=== PATIENT | male | born 1955 | race Caucasian/White ===

== ENCOUNTER → 2020-07-04 13:50 | Outpatient (CLI) | payer OTHER, SELFPAY ==
[2020-07-04 15:13] LABS: COVID19 -Nasal RAPID Negative (Negative)
== END ==
PROVIDERS: Visit Provider Physician Assistant
DX: Z11.59 Encounter for screening for other viral diseases (principal)
CPT/HCPCS: 87635

== ENCOUNTER 2020-07-07 08:57 | Inpatient (IN) | payer SELFPAY ==
[2020-07-02 12:49] VITALS: BMI 21.5
[2020-07-07] VITALS (18 sets, daily range): BP systolic 84–166; BP diastolic 41–93; PULSE 64–115; RESP 12–18; TEMP 35.9–36.9; O2SAT 96–100; BMI 21.5
--- NOTE | 2020-07-07 | DI.RAD.S_ITS ---
PROCEDURE: XR THORACIC SPINE 2V INDICATIONS: T8-9 XLIF TECHNIQUE: Fluoroscopic views x2 of the thoracic spine were acquired. COMPARISON: [facility], CR, XR CHEST 1V, 07/07/2020, 18:30. FINDINGS: Thoracic spine bilateral pedicle screws with intervertebral body spacer. Pedicle screws are in the expected position. IMPRESSION: Pedicle screws are in the expected position within the vertebral body. Dictated by: Nacho Miller M.D. on 07/07/2020 at 19:25 Approved by: Nacho Miller M.D. on 07/07/2020 at 19:26
[2020-07-07] MEDS: LACTATED RINGERS 1,000 ML 42 ML IV ×3 (09:55→16:25)
--- NOTE | 2020-07-07 10:32 | PM.PREOP ---
Pre-operative Note COVID-19 COVID-19 status: Negative Result date/Date tested (Pos, Neg/Pending): 07/04/20 Interval Note History & Physical reviewed/Exam performed by Physician: Yes Changes to H&P: Yes H&P completed within 30 days and has changed as indicated here:: He has seen his seismometer operator Dr Price. He then later had a stress test with some reversible ischemia. We discussed the new test with Dr Price yesterday who states that he is at intermediate risk but is medically maximized at this point.
--- NOTE | 2020-07-07 11:26 | SUR.PREOP ---
Dr Melgar to room to place an arterial line to patient for surgery. Placed patient on oxygen at 2 liters nasal cannula. Continuous cardiac monitoring in place. VSS.
[2020-07-07] MEDS: MIDAZOLAM 2 MG/2 ML VIAL IV (11:29)
[2020-07-07] MEDS: CEFAZOLIN 2 GM/100 ML FROZ.PIGGY IV ×3 (11:49→23:25)
--- NOTE | 2020-07-07 11:49 | SUR.PREOP ---
Patient tolerated placement of left radial arterial line without difficulty. VSS. To OR via stretcher with OR nurse.
--- NOTE | 2020-07-07 12:38 | PM.PROC.1 ---
Procedures Date/Time Date of procedure: 07/07/20 Time of procedure: 11:30 Arterial Line Time out performed: Yes Size (Gauge): 20 Technique used: guide wire technique Post-Procedure: dry sterile dressing placed Patient tolerated procedure: Well and No complications Site: left and radial
[2020-07-07] MEDS: ACETAMINOPHEN IV 1,000 MG/100 ML VIAL 400 MG IV (13:00)
[2020-07-07] MEDS: SODIUM CHLORIDE 0.9% 1,000 ML, GENTAMICIN 80 MG IRR (13:08)
[2020-07-07] MEDS: THROMBIN (RECOMBINANT) 5,000 UNIT VIAL 5000 UNIT TOP (13:10)
[2020-07-07] MEDS: VANCOMYCIN 1,000 MG VIAL 1000 MG TOP (13:11)
[2020-07-07] MEDS: BUPIVACAINE 0.5% (PF) 4 ML, MORPHINE-PF 4 MG, BUTORPHANOL 1 MG, fentaNYL 100 MCG INJ (13:11)
--- NOTE | 2020-07-07 13:21 | SUR.OPER ---
Lateral on padded OR bed, head on pillow, gel axillary roll in place, bottom leg bent with gel pad under knee to foot, upper leg straight and supported with pillows. Upper arm supported by pillows and secured over bottom arm to padded arm board. Safety belt at hip, tape over blanket lower legs.
--- NOTE | 2020-07-07 13:22 | SUR.OPER ---
Prone on spine table, head in foam head support, padded chest and pelvic supports, gel pad at knees, lower legs supported by pillows; nipples, genitalia and toes free of pressure, arms secured on foam padded arm boards at <90 degrees abduction. Tape over blanket at thigh secured to table.
--- NOTE | 2020-07-07 14:07 | SUR.OPER ---
Patient glucose 154 at 14:00; fingerstick by Dr. Melgar.
[2020-07-07] MEDS: LACTATED RINGERS 1,000 ML 100 ML IV (14:55)
[2020-07-07 15:29] LABS: Hemoglobin 10.8 g/dL (13.5-17.5)
--- NOTE | 2020-07-07 18:02 | PM.OP.1 ---
Operative Date/Time/Diagnoses Date of procedure: 07/07/20 Time of procedure: 18:02 Pre-op diagnosis: Thoracic disc herniation with myelopathy Lumbar stenosis with radiculopathy Post-op diagnosis: same Procedure & Clinicians Procedure: T8-9 anterior thoracic diskectomy T8-9 anterior thoracic fusion with cage T8-9 posterior fusion with screws Iliac crest bone graft aspirate L1-2 laminectomy L2-3 laminectomy Use of microscope Placement of epidural catheter Same procedure as scheduled: Yes Indications: [age] year old male with intractable pain from stenosis and thoracic disc herniation. They had failed conservative management and requested operative intervention. Risks and benefits of surgery were discussed and appropriate consents were obtained. Surgeon: Teodoro Webb Associate Professor Computer Science: Gloria Plascencia Anesthesia Type: General Operative Notes Findings: None Closure Type: primary Specimen(s): none sent Prosthetic devices, grafts, tissues, transplants, or devices: NuVasive Thoracic XLIF cage and MAS Reline screws Applied: catheter Estimated Blood Loss (mL): 800 Procedure in detail: Patient was brought to the operating room and intubated on the table. Time-out was performed. They were then rolled over to the lateral decubitus position with the [id number]. The table was bent and they were taped down in the correct position. X-rays were taken to confirm a true AP and lateral as well as to count up to our T8-9 level. Preoperative antibiotics were given. The right flank was prepped and draped in standard sterile fashion. Using fluoroscopy, we again counted up to our T8-9 level and this was confirmed with the large anterior osteophytes. We made a 3 cm oblique incision just above the rib that was below the disc level. Bovie used to come down to and split the muscles. We then bluntly split through the pleura into the chest cavity. A finger was used to bluntly dissect and opened this up and then gently sweep the long anteriorly. Using fluoroscopy, a dilator was slid down to the finger along the lateral aspect of the rib until it went forward to the vertebral body. This was positioned over the T8-9 disc with fluoroscopy. We then used sequentially larger dilators and then placed our retractor over this. We switched out the fan retractor for the anterior blade to keep the lung anterior and safely out of the way. We then advanced the retractor and opened it further and checked under fluoro for positioning, confirming the anterior blades were over the level of the canal. The blade was used to cut through the pleura on the anterior aspect and this was dissected away to expose over the head of the rib. An annulotomy was performed. We then performed a complete diskectomy with ring curette, pituitary, box osteotome. A Hopkins was advanced across the disc space under fluoroscopy to release the lateral annulus on the opposite side. An osteotome was used to remove part of the head of the rib and also to make angled cuts along the superior posterior endplate of T9 in the inferior posterior endplate of T8. There were very large osteophytes along T9 and we had to remove part of the pedicle to be able to get to this section. We continued working with the osteotome till we were well past the midline. We used curettes and a Fulton to gradually sweep all of the tissue anteriorly away from the PLL and dura. There was a large disc component corresponding with the MRI as well as large posterior osteophytes and some calcified disc. This took the majority of the time to slowly work posteriorly around this and remove little bits at a time with a curette. As we were cutting through the vertebral body, the bone marrow continue to ooze and bleed which accounted for almost all the bleeding. Some of this was kept under control with bone wax but somewhat just kept oozing. At the end, we had finally decompress the disc herniation and released the PLL as well as expose the dura and everything appeared well released. The wound was copiously irrigated. We then trialed our cage. We needed to use the box osteotome to make a further anterior cut so that it would be stable as we lost some of our posterior aspect of the bone. An XLIF cage was packed with Osteocel bone graft and impacted into the T8-9 disc space with fluoroscopy for the anterior fusion at this level. The bone marrow stopped oozing once the cage was packed in. The wound was irrigated. The retractor was closed down and carefully removed under direct visualization. The lung filled back easily. A small 1 cm incision was made to ribs down and Bovie used to split through the muscle just above the rib. A finger was placed through the thoracotomy incision to this level and we Bovie down on top of that to protect the lung. Small chest tube was passed through the smaller incision and advanced cephalad. The muscle fascia was closed, superficial tissue was closed. The skin was closed. A draw string purse stitch was placed around the chest tube and it was tied in place. Sterile dressing was placed. The chest tube was hooked up to the pneumovac at 20 cm of water. The patient was then rolled over on the well-padded prone position on the Bebo table. Using fluoroscopy for localization, a 3 cm incision was made on the right side over T8-9. We used Bovie to split through the fascia and then percutaneously placed Jamshidi needles down the right pedicles of T8 and T9 using fluoroscopy and neural monitoring. We stated as inferior as possible in the T9 pedicle to try to keep it in the remaining bone. These were switched to guidewires and then tapped and then percutaneous screws placed over this. We then measured and placed a pati locked down. We then went to the left-hand side and made a 3 cm incision. Bovie used to split the fascia and we dissected all the way down to the bone. The lamina of T8-T9 as well as the facet were exposed. We used a bur to decorticate these. We then percutaneously placed Jamshidi needles down the left pedicles of T8-T9 using fluoroscopy and monitoring. We tapped and then placed our screws. The pati was placed and locked down. The wounds were copiously irrigated. A small stab incision was made over the PSIS and a Jamshidi needle was placed into the iliac crest and several mL of bone marrow was aspirated. This was mixed with our locally harvested bone graft as well as the remaining Osteocel and placed posteriorly along the lamina facet for fusion at T8-9. The fascia was closed in both incisions. We then used fluoroscopy to make a 3 cm right-sided incision at L3-4. We used Bovie to split the fascia. We bluntly dissected through the muscle down to the lamina with dilators and confirmed positioning with fluoroscopy. We locked down our retractor and cleared off the soft tissue and placed a marker and confirmed with fluoroscopy that we were at L3-4. We brought in the microscope. A right-sided laminectomy was performed at L3-4 with bur and Kerrisons. We carefully depressed the dura and reach across to decompress the opposite side of the canal. We cleared out the foramen. At the end we could reach cephalad and caudally and everything was open.. The wound was irrigated and the fascia closed. We then used fluoroscopy to make another 3 cm right-sided incision over L1-2. We used Bovie to split the fascia. We used the dilators to bluntly split through the muscle and confirmed position with fluoroscopy then locked our retractor down. We cleared off the soft tissue and placed a marker and confirmed with fluoroscopy that we were at L1-2. Again a bur and Kerrisons were used to perform a right-sided laminectomy. We carefully depressed the dura and reach to the opposite side to decompress the canal. In the end we could sweep the ball probe cephalad caudally and out the foramen and everything was open. The wound was irrigated An epidural catheter was primed with 4mL of 0.5% bupivacaine, 100 mcg fentanyl, 4 mg Duramorph, 1 mg Stadol. The dura was depressed under the cephalad lamina with a ball probe and the epidural catheter was gently advanced 6 cm cephalad. The fascia was then closed. The epidural was then injected without resistance. The catheter was pulled and we closed more over the fascia. Vancomycin powder was placed in the wounds. The superficial and skin were closed. Sterile dressings were placed. The patient was then rolled over, extubated, brought to the recovery room with no complications. Complications: none Post-operative Condition: stable Disposition: ICU Plan for aftercare: Chest tube overnight and then put on water seal in the morning. If the new chest x-ray looks good then the chest tube can come out in the morning. Mobilize with PT.
--- NOTE | 2020-07-07 18:09 | DI.RAD.S_ITS ---
PROCEDURE: XR CHEST 1V INDICATIONS: s/p thoracotomy TECHNIQUE: One view of the chest was acquired. COMPARISON: None. FINDINGS: Surgical changes and devices: Right-sided chest tube with the tip projecting near the apex.. Lungs and pleura: Lungs appear clear. Suspect trace right pneumothorax. No pleural effusion. Mediastinum: Mediastinal contours appear normal. Heart size is normal. Bones and chest wall: No suspicious bony lesions. Thoracic spine fixation hardware. Overlying soft tissues appear unremarkable. IMPRESSION: Suspect trace right pneumothorax. Right-sided chest tube with the tip near the apex. Thoracic spine fixation hardware. Dictated by: Nacho Miller M.D. on 07/07/2020 at 18:50 Approved by: Nacho Miller M.D. on 07/07/2020 at 18:53
[2020-07-07 19:00] LABS: Hematocrit 30.6 % (41-53); Hemoglobin 10.6 g/dL (13.5-17.5)
[2020-07-07] MEDS: OXYCODONE IR 5 MG TABLET PO ×2 (19:08→19:31)
[2020-07-07] MEDS: hydrOXYzine 50 MG/ML INJ 25 MG IM (19:08)
[2020-07-07] MEDS: HYDROMORPHONE 2 MG INJ IV ×2 (19:15→19:19)
--- NOTE | 2020-07-07 19:21 | SUR.PHASEI ---
During chest x-ray while patient was sat up, patient's bp dropped on art line. Placed in trendelenburg immediately where blood pressure came back up to stable. Dr. Webb made aware of episode and gave new orders for H&H.
--- NOTE | 2020-07-07 20:17 | SUR.PHASEI ---
Patient taken up to ICU in stable condition with all belongings. Left in stable condition with receiving RN at bedside
[2020-07-07] MEDS: HYDROMORPHONE 0.5 MG INJ IV (21:43)
[2020-07-07] MEDS: LACTATED RINGERS 1,000 ML 125 ML IV (21:48)
[2020-07-08] VITALS (37 sets, daily range): BP systolic 95–123; BP diastolic 50–62; PULSE 0–991; RESP 5–37; TEMP 36.4–37.3; O2SAT 91–100
[2020-07-08] MEDS: HYDROCODONE/ACET 5/325 TABLET 2 TAB PO ×4 (00:42→19:05)
[2020-07-08 04:52] LABS: Hematocrit 26.5 % (41-53); Hemoglobin 9.2 g/dL (13.5-17.5)
[2020-07-08] MEDS: LACTATED RINGERS 1,000 ML 125 ML IV ×2 (04:52→22:36)
[2020-07-08] MEDS: HYDROMORPHONE 0.5 MG INJ IV ×2 (04:52→07:44)
--- NOTE | 2020-07-08 06:00 | DI.RAD.S_ITS ---
PROCEDURE: XR CHEST 1V INDICATIONS: post thoracotomy TECHNIQUE: One view of the chest was acquired. COMPARISON: [facility], CR, XR CHEST 1V, 07/07/2020, 18:30. FINDINGS: Surgical changes and devices: Right-sided chest tube with the tip near the apex. Lungs and pleura: Trace right pneumothorax. Lungs appear clear. No pleural effusions. Mediastinum: Mediastinal contours appear normal. Heart size is normal. Bones and chest wall: No suspicious bony lesions. The thoracic spine fixation hardware. Overlying soft tissues appear unremarkable. IMPRESSION: Trace right pneumothorax, unchanged. Right-sided chest tube with the tip near the apex. Dictated by: Nacho Miller M.D. on 07/08/2020 at 8:04 Approved by: Nacho Miller M.D. on 07/08/2020 at 8:06
--- NOTE | 2020-07-08 07:36 | PM.PNPO.1 ---
Subjective Subjective Date Patient Seen: 07/08/20 Time Patient Seen: 07:37 Interval history: Pain is 8/10 mostly in the back. Legs feel good although still weakness on the left leg. The abdominal pain is not sharp but there is still a tightness feeling. Exam Vital Signs (past 8 hours): - 07/08/20 00:00 07/08/20 01:00 07/08/20 02:00 Temperature 97.5 F L Pulse Rate 70 84 84 Respiratory Rate 16 18 12 Blood Pressure 101/50 L 101/50 L 107/52 L Pulse Oximetry 97 100 100 07/08/20 03:00 07/08/20 04:00 07/08/20 05:00 Temperature 97.8 F Pulse Rate 76 76 70 Respiratory Rate 20 16 18 Blood Pressure 120/53 L 109/50 L 95/53 L Pulse Oximetry 100 99 99 07/08/20 06:00 Temperature Pulse Rate 72 Respiratory Rate 20 Blood Pressure 105/54 L Pulse Oximetry 97 Oxygen Delivery Method Nasal Cannula Oxygen Flow Rate 0 Const Orientation: alert and oriented x3 Back/Spine/Pelvis Other: Moderate drainage chest tube site. Mild drainage posteriorly. 5/5 motor both lower extremities except for 4/5 bilateral hip flexors and 4/5 left quadriceps, improved since surgery. Objective Labs Result Diagrams: 07/08/20 04:47 Labs: Laboratory Results - last 24 hr 07/07/20 07/07/20 07/07/20 15:23 15:23 18:57 Hgb 10.8 L 10.6 L Hct 32.0 L 30.6 L Nasal Screen MRSA (PCR) Blood Type B Positive Antibody Screen Negative 07/07/20 07/08/20 22:00 04:47 Hgb 9.2 L Hct 26.5 L Nasal Screen MRSA (PCR) Negative for mrsa Blood Type Antibody Screen Assessment & Plan Post-op Postoperative Procedures: Procedures Operation Date: 07/07/20 11:15 Actual Procedures Side Surgeon p T89 anterior transpleural (through chest cavity) discectomy & anterior/ posterior instrumentated fusion w/ bone graft. L1-2, L3-4 laminectomies Teodoro Webb MD He has acute blood loss anemia with an H&H now at 9 and 26. Recheck the H&H again in the morning. He is somewhat dehydrated right now as his urine output is low and I will give him a normal saline bolus. His chest x-ray looks good this morning and I just removed his chest tube. We will check a repeat chest x-ray. Mobilize with physical therapy. Continue working with pain management.
--- NOTE | 2020-07-08 07:37 | DI.RAD.S_ITS ---
PROCEDURE: XR CHEST 1V INDICATIONS: s/p chest tube removal TECHNIQUE: One view of the chest was acquired. COMPARISON: [facility], , XR CHEST 1V, 07/08/2020, 6:02. FINDINGS: Surgical changes and devices: Interval removal of right chest tube Lungs and pleura: Interval increase in right pneumothorax, now [id number]. Patchy bibasilar atelectasis. Mediastinum: Mediastinal contours appear normal. Heart size is normal. Bones and chest wall: No suspicious bony lesions. Overlying soft tissues appear unremarkable. IMPRESSION: Status post removal of right chest tube with interval increase in right pneumothorax, now [id number]. Dictated by: Morgan Barber M.D. on 07/08/2020 at 8:58 Approved by: Morgan Barber M.D. on 07/08/2020 at 9:00
--- NOTE | 2020-07-08 07:39 | PC.NURSE ---
Broadcast Operations Manager Note-Patient rested fairly well, but did not sleep, medicated with PO Roosevelt and IV Dilaudid per prn orders. Chest patent to 20cm sx until 0400, then placed on water seal for CXR at 0600. MD removed chest tube this am, had total srous-sang output of 38ml. Artline in place overnight, positional, waveform becomes damped often, will be removed this am also per MD order. Total UOP in Martin 150ml for night, MD ordered fluid bolus, see Emar. Also see assessments, vitals, and I/Os.
[2020-07-08] MEDS: SODIUM CHLORIDE 0.45% 1,000 ML 1000 ML IV (07:45)
[2020-07-08] MEDS: CEFAZOLIN 2 GM/100 ML FROZ.PIGGY IV ×2 (07:52→17:17)
[2020-07-08] MEDS: DOCUSATE 100 MG CAPSULE PO ×2 (08:32→20:40)
[2020-07-08] MEDS: diazePAM 5 MG TABLET PO ×2 (08:32→16:17)
[2020-07-08] MEDS: GABAPENTIN 100 MG CAPSULE PO ×3 (08:33→20:40)
[2020-07-08] MEDS: HYDROMORPHONE 0.5 MG INJ 0.2 MG IV (08:35)
[2020-07-08] MEDS: HYDROMORPHONE 1 MG INJ IV ×7 (10:16→21:37)
--- NOTE | 2020-07-08 10:18 | PT-IP ANOTE ---
PT order received. Spoke to TONE [place]field who stated pt is not medically stable ready for PT. Pt had his chest tube removed earlier this morning but his pneumothorax has been worsening. Surgeon will decide this pm whether pt will need chest tube again or not depends on his progress. RN recommended deferring PT to tomorrow.
--- NOTE | 2020-07-08 10:44 | OT.IPNOTE ---
Per nursing pt not medically appropriate at this time for OT eval. Therefore check on pt tomorrow.
[2020-07-08] MEDS: CELECOXIB 200 MG CAPSULE PO ×2 (11:28→20:40)
[2020-07-08] MEDS: methocarbamoL 500 MG TABLET PO ×3 (11:29→20:40)
--- NOTE | 2020-07-08 11:49 | PC.NURSE ---
Addendum entered by Gin Lezama R.N. 07/08/20 15:32: Add-No hospitalist consult per Dr Webb, monitor until he returns for chest tube placement. Addendum entered by Gin Lezama R.N. 07/08/20 15:27: Dr Webb planning to reinsert chest tube at bedside ~1500. Supplies at bedside. Addendum entered by Gin Lezama R.N. 07/08/20 12:09: 1210-Pt remains with significant pain to R chest and back, unable to sit up at edge of bed. Following increased dosing of 1mg hourly hydromorphone. 90-92% on RA, placed back on 1L. Call into Dr Webb. CXR moved up to now, from 1500. Portable obtained at bedside. updated at bedside as well. Sero sang drainaage noted to chest tube dressing. Original Note: Am shift Dr Webb into see Pt, removed chest tube, occlusive dressing in place. Repeated chest xray, showing worsening pneumothorax. Call to Dr Webb, Repeat chest xray @ 1500 and increased IV dilaudid for break through pain. Encourage ambulation/work with PT, once pain is better controlled. IVF bolus ordered. Pts lungs remains dim, worse on R, SOB and pain worse with any movement. Pt has been unable to sit at the edge of bed yet this shift. Trialed at RA, Spo2 90% Rates pain 9/10 to Chest tube site. Serosang drainage noted. UOP picking up , curry patent.
--- NOTE | 2020-07-08 12:08 | DI.RAD.S_ITS ---
PROCEDURE: XR CHEST 1V INDICATIONS: Monitor pneumothorax TECHNIQUE: One view of the chest was acquired. COMPARISON: [facility], CR, XR CHEST 1V, 07/08/2020, 6:02. [facility], CR, XR CHEST 1V, 07/07/2020, 18:30. [facility], CR, XR CHEST 1V, 07/08/2020, 8:18. FINDINGS: Surgical changes and devices: No chest tube. Lungs and pleura: Moderate-sized right pneumothorax, increased. This measures approximately 3.9 cm, previously 3 cm at 8:18 this morning. No pneumothorax on the left. No pleural effusion. Mild airspace opacity at the right lung base likely atelectasis. Mediastinum: Mediastinal contours appear unchanged. No midline shift. Heart size is normal. Bones and chest wall: No suspicious bony lesions. Thoracic spine pedicle screws. Overlying soft tissues appear unremarkable. IMPRESSION: Moderate-sized right pneumothorax, increased. Comment: Findings were discussed with Dr. Teodoro Webb at the time of dictation. Dictated by: Nacho Miller M.D. on 07/08/2020 at 13:14 Approved by: Nacho Miller M.D. on 07/08/2020 at 13:20
[2020-07-08] MEDS: hydrOXYzine pamoate 25 MG CAPSULE PO ×2 (13:41→16:17)
[2020-07-08] MEDS: INSULIN ASPART 100 UNIT/ML INSULN PEN SUBCUT ×2 (13:41→16:32)
--- NOTE | 2020-07-08 13:48 | CM.DANOTE ---
Patient is a 64 year old male who was admitted on 07/07/20 for Thoracic Spinal Stenosis/Lumbar. Pt has PRIVATE PAY for no insurance and his PCP is not listed. EMR was reviewed. Per Ortho MD, pt tolerated procedure well and planned chest tube was removed early this morning. Per RN, pt has had some pain control issues since chest tube removed and low H&H. PT/OT ordered and pending. Per [facility], pt does not have insurance and does not qualify and therefore they worked with [facility] and the hospital on paying a down payment upfront which was received. SW met bedside with pt and spouse and explained role and pt clearly feeling pain and discomfort. Pt and spouse confirm they live in [place] and pt is active and independent at baseline and denies any hx of HH or SNF. Pt has not recently utilized outpt PT but was going to a Chiropractor without relief of symptoms. Pt does not typically use any DME for ambulation but the couple weeks prior to surgery pt had increased sharp pains that greatly limited his ambulation and activity tolerance. Pt and spouse are hopeful that pt progresses well after pain better controlled. If HH or SNF recommended, pt's lack of insurance could be a barrier. Spouse plans to assist pt at home. Plan: SW to follow for PT/OT eventual initial eval towards determining d/c planning needs. Pt's insurance could be a barrier to discharge planning if needs identified. KEVEN Buckley Discharge Planning/Care Management Advanced directive, confirm from FAMILY Start: 07/07/20 21:38 Freq: Q24H Status: Active Protocol: Document 07/08/20 00:00 SMS (Rec: 07/08/20 00:37 SMS [id number]) Advance Directive, confirm on record Time 00:00 Person contacted patient Copy received No Advanced directive available on record No CM Discharge Assessment Start: 07/08/20 13:38 Freq: Status: Active Protocol: Document 07/08/20 13:45 BF (Rec: 07/08/20 13:48 BF [id number]) Discharge Planning Assessment Assigned Insurance Business Analyst KEVEN Tom DPOA/Assigned Designee Name spouse Ina Contact Information [phone] Advance Directives? Yes History Provided By Patient,Significant Other, Medical Record Has Patient been admitted in last 30 No days? Prior Living Arrangements House Household Members spouse Type of transporation used prior to Drives own vehicle admit Independent with ADL's Yes Is patient alert and oriented? Yes Caregiver for Another No Comment Utilized chiropractic outpt prior to surg Patient/Family Preference OP PT Therapy Comment Pending PT/OT eval and recommendations Barriers to Discharge No Discharge Plan Home with Home Health Transportation Arrangement Spouse bedside and can provide transport if safe for home Additional Comment Pending PT/OT initial eval and recommendations Whiteboard Updated in Patient Room with Yes name and ext. # of Insurance Business Analyst Review Status In Process Please Provide Date Initial DC 07/08/20 Assessment Was Performed Next Review Type Continued Stay Review Pre-Anesthesia Assessment Start: 07/02/20 12:49 Freq: Status: Complete Protocol: Document 07/02/20 12:49 CAB (Rec: 07/02/20 13:49 CAB [id number]) Pre-Anesthesia Assessment Preferred Name Saul Patient Information Reviewed Via Phone Assessment Assessment Completed With Patient Primary Care Provider Santa Holbrook Seen Specialist in Last 12 Months Yes Specialist Seen Spray Painter,Orthopedist Primary Language Korean Forensic Accountant Required No Height 175.26 cm Weight 66.224 kg Body Mass Index (BMI) 21.5 Hearing Ability Hard of Hearing Visual Assist Glasses Dentition Type Teeth, Natural Present Barriers to Learning Visual Hx Anesthesia Reactions No Hx Family Anesthesia Reaction No Hx Malignant Hyperthermia No Hx Blood Transfusions No Anesthesia Review Requested Yes: PAC Courtesy re: Comorbidities alcohol intake former Smoking Status Never smoker Substance Use Type does not use Pain Present Pain Reported Musculoskeletal Symptoms Abnormal Gait,Arthralgias,Back Pain,Difficulty Walking, Muscle Weakness,Myalgias, Numbness History of Falling (Recent or History of Yes ) Patient is completely paralyzed or No completely immobile Prosthesis or Orthotic Device Cane,Front Wheel Walker, Wheelchair Mental Status Oriented to own ability Is patient on oxygen? No Does patient have DOMINGUEZ/SOB Yes Hx Sleep Apnea Yes: Does not use CPAP Currently Taking a Beta Yeni No Can You Climb a Flight of Stairs Without No SOB Hx Chest Pain No Hx SOB Yes Hx Syncope or Dizziness Yes: Dizziness w/changing positions Anti-Coagulant Therapy Yes: Pradaxa-advised to hold 5 days prior per Cardiology Has a Spray Painter Yes: Dr. Price Cardiac Testing Yes: Nuc perfusion 06/30/20, Echo 06/19/20 Hx Pacemaker/ICD No Pacemaker Rep Required? No Comment Cardiac records scanned Diet Type At Home Regular,Diabetic dysphagia No: Loss of appetite, 30lb wt loss over last few months Gastrointestinal Symptoms Abdominal Pain,Constipation Genitourinary Symptoms Itching Urinary Catheter Present No Hx Urinary Self Catheterization No Diabetes Yes: Hx diabetic ketoacidosis 11/07-Admit to [facility] Hx Drug Resistant Organism No Presence of External or Internal Medical No Devices Have you had any close contact with No someone diagnosed with COVID-19? Marital Status Lives With spouse Prior Living Arrangements House Number of Floors (Floors) Two Floors Support System Child/Children,Spouse Does the Patient Have Assistance After Yes Surgery Patient Discharge Plan Description Return Home Comment Pt advised 3-4 day length of stay per surgeon Feels Safe in Current Environment Yes Been Physically Hurt or Threatened By a No Person in Current Environment Do you have thoughts of harming yourself None or others? Are you currently considering suicide? No Do you have a plan to hurt yourself or No Plan others? Do You Have Any Spiritual Beliefs That No May Affect Your HC Choices? Do You Have Any Cultural Practices That No May Affect Your HC Choices? Comment Seventh Day Sabianist Who Can We Speak to About Patient's Care Family, friends Identifying Code for Release of Patient Declines to issue Information Health Care Proxy/Next of Kin Ina () Health Care Proxy Emergency Contact Name Ina () Emergency Contact Advance Directives? No Power of Quality Review Specialist No PAC Instructions Diabetes instructions,Durable medical equipment,Medications to take/avoid,Nasal antibiotic ,No ETOH/petroleum product on skin DOS,NPO,Post-op transportation,Pre-surgical wash,Sturdy shoes/comfortable clothes,Do not bring valuables and remove jewelry
--- NOTE | 2020-07-08 16:23 | PM.PNPO.1 ---
Subjective Subjective Date Patient Seen: 07/08/20 Time Patient Seen: 16:23 Interval history: Chest tube was pulled this AM but small audible sucking noise when removed. Larger pneumothorax on new xray. Otherwise still working on pain control. UOP better after bolus. Exam Vital Signs (past 8 hours): - 07/08/20 09:00 07/08/20 09:05 07/08/20 10:00 Temperature 98.6 F Pulse Rate 83 991 H Respiratory Rate 16 22 Blood Pressure 122/58 L 112/57 L Pulse Oximetry 98 98 91 07/08/20 11:00 07/08/20 12:00 07/08/20 13:00 Temperature 98.2 F 98.2 F 98.2 F Pulse Rate 85 85 85 Respiratory Rate 24 24 24 Blood Pressure 118/61 118/61 118/61 Pulse Oximetry 96 96 96 07/08/20 14:00 Temperature 97.7 F Pulse Rate 90 Respiratory Rate 18 Blood Pressure 97/52 L Pulse Oximetry 93 Oxygen Delivery Method Nasal Cannula Oxygen Flow Rate 0 Objective Labs Result Diagrams: 07/08/20 04:47 Labs: Laboratory Results - last 24 hr 07/07/20 07/07/20 07/07/20 15:23 18:57 22:00 Hgb 10.6 L Hct 30.6 L Nasal Screen MRSA (PCR) Negative for mrsa Blood Type B Positive Antibody Screen Negative 07/08/20 04:47 Hgb 9.2 L Hct 26.5 L Nasal Screen MRSA (PCR) Blood Type Antibody Screen Assessment & Plan Post-op Postoperative Procedures: Procedures Operation Date: 07/07/20 11:15 Actual Procedures Side Surgeon p T89 anterior transpleural (through chest cavity) discectomy & anterior/ posterior instrumentated fusion w/ bone graft. L1-2, L3-4 laminectomies Teodoro Webb MD I explained that this recurred and we needed to put the tube back in. Plan to use the same tube hole so less traumatic. Risks/benefits discussed. Necessary. Low risk of pulmonary injury or infection. Procedure: Sterile prep. Marcaine for local. Old stitch removed. Previous hole palpated, occasional sucking noise when manipulating. Able to reinsert new 20F chest tube and hooked up to pneumevac. Good air flow with cough and breathing. Tube sewn in with pursestring as well as overstitched lateral edge. Will get new CXR for confirmation.
--- NOTE | 2020-07-08 16:27 | DI.RAD.S_ITS ---
PROCEDURE: XR CHEST 1V INDICATIONS: new chest tube, pneumothorax TECHNIQUE: One view of the chest was acquired. COMPARISON: [facility], , XR CHEST 1V, 07/08/2020, 12:16. FINDINGS: Surgical changes and devices: Right chest tube has been placed since the most recent prior study. Remote orthopedic fixation at approximately T9-T10. Lungs and pleura: Interval decrease in right pneumothorax, now minimal. Lungs are clear. No pleural effusions or pneumothorax. Mediastinum: Mediastinal contours appear normal. Heart size is normal. Bones and chest wall: No suspicious bony lesions. Overlying soft tissues appear unremarkable. IMPRESSION: Interval Re insertion of right chest tube with near complete re-expansion of the right lung. Dictated by: Morgan Barber M.D. on 07/08/2020 at 16:50 Approved by: Morgan Barber M.D. on 07/08/2020 at 16:51
[2020-07-08] MEDS: ATORVASTATIN 20 MG TABLET 40 MG PO (17:19)
--- NOTE | 2020-07-08 19:08 | PC.NURSE ---
Dr Webb here at 1600 to reinsert R chest tube. Pt positioned and surgical dressing removed. After 20Fr chest tube inserted, connected to 20cmwater seal with suction. Bubbling noted initially in the chamber but have ceased. 100ml serosangenous drainage noted initially. dressing reapplied and pt repositioned for comfort.
[2020-07-08] MEDS: diphenhydrAMINE 25 MG TABLET PO (20:40)
[2020-07-08] MEDS: SENNOSIDES 8.6 MG TABLET 17.2 MG PO (20:40)
[2020-07-08] MEDS: INSULIN NPH 100 UNIT/ML VIAL 18 UNIT SUBCUT (20:47)
[2020-07-08] MEDS: INSULIN REGULAR 100 UNIT/ML 3 ML VIAL 8 UNIT SUBCUT (20:52)
[2020-07-09] VITALS (53 sets, daily range): BP systolic 95–132; BP diastolic 50–69; PULSE 76–102; RESP 8–33; TEMP 36.4–37.7; O2SAT 92–100
[2020-07-09] MEDS: CEFAZOLIN 2 GM/100 ML FROZ.PIGGY IV ×2 (00:28→10:53)
[2020-07-09] MEDS: HYDROCODONE/ACET 5/325 TABLET 2 TAB PO ×4 (00:28→20:55)
[2020-07-09] MEDS: HYDROMORPHONE 1 MG INJ IV ×5 (01:16→17:56)
[2020-07-09 06:01] LABS: Hemoglobin 8.5 g/dL (13.5-17.5)
[2020-07-09 06:07] LABS: Hematocrit 24.7 % (41-53)
--- NOTE | 2020-07-09 06:28 | DI.RAD.S_ITS ---
PROCEDURE: XR CHEST 1V INDICATIONS: pneumothorax TECHNIQUE: One view of the chest was acquired. COMPARISON: [facility], , XR CHEST 1V, 07/08/2020, 16:29. FINDINGS: Surgical changes and devices: Right-sided chest tube is stable. Stable lower thoracic spine fixation hardware. Lungs and pleura: Trace apically right pneumothorax slightly decreased in size compared to July 08, 2020. Mediastinum: Mediastinal contours appear normal. Heart size is normal. Bones and chest wall: No suspicious bony lesions. Overlying soft tissues appear unremarkable. IMPRESSION: Trace apical right pneumothorax. Dictated by: Ena Mondragon MD, PhD on 07/09/2020 at 9:26 Approved by: Ena Mondragon MD, PhD on 07/09/2020 at 9:27
--- NOTE | 2020-07-09 07:22 | PM.PNPO.1 ---
Subjective Subjective Date Patient Seen: 07/09/20 Time Patient Seen: 07:22 Interval history: Pain is about a 6/10 at rest but severe with any motion. Exam Vital Signs (past 8 hours): - 07/08/20 23:30 07/09/20 00:00 07/09/20 00:30 Temperature 98.3 F Pulse Rate 104 H 102 H 101 H Respiratory Rate 7 L 8 L 19 Blood Pressure 106/59 L Pulse Oximetry 99 94 98 07/09/20 01:00 07/09/20 01:30 07/09/20 02:00 Temperature Pulse Rate 99 H 90 84 Respiratory Rate 16 16 16 Blood Pressure 106/58 L 98/50 L Pulse Oximetry 98 94 100 07/09/20 02:01 07/09/20 02:03 07/09/20 02:23 Temperature Pulse Rate 85 84 79 Respiratory Rate 14 15 14 Blood Pressure 98/50 L Pulse Oximetry 100 100 100 07/09/20 02:30 07/09/20 03:00 07/09/20 03:30 Temperature Pulse Rate 78 79 76 Respiratory Rate 14 14 16 Blood Pressure 101/53 L Pulse Oximetry 100 100 100 07/09/20 03:47 07/09/20 03:57 07/09/20 04:00 Temperature Pulse Rate 80 78 79 Respiratory Rate 14 16 16 Blood Pressure 101/58 L 102/56 L 103/57 L Pulse Oximetry 100 100 100 07/09/20 04:30 07/09/20 05:00 07/09/20 05:30 Temperature 97.9 F Pulse Rate 85 85 83 Respiratory Rate 12 13 Blood Pressure 99/53 L Pulse Oximetry 97 94 96 07/09/20 06:00 Temperature Pulse Rate 84 Respiratory Rate 13 Blood Pressure 105/57 L Pulse Oximetry 96 Oxygen Delivery Method Nasal Cannula Oxygen Flow Rate 0 Const Orientation: alert and oriented x3 Back/Spine/Pelvis Other: Chest incision minimal drainage. 5/5 motor both lower extremities except 4/5 bilateral hip flexion Objective Labs Result Diagrams: 07/09/20 05:38 Labs: Laboratory Results - last 24 hr 07/07/20 07/09/20 15:23 05:38 Hgb 8.5 L Hct 24.7 L Crossmatch See Detail Assessment & Plan Post-op Postoperative Procedures: Procedures Operation Date: 07/07/20 11:15 Actual Procedures Side Surgeon p T89 anterior transpleural (through chest cavity) discectomy & anterior/ posterior instrumentated fusion w/ bone graft. L1-2, L3-4 laminectomies Teodoro Webb MD He has acute blood loss anemia. He has had some hypotension and with his cardiac history of morning transfused him 2 units pack red blood cells. Chest x-ray this morning looks good. I am going to change my over to water seal and recheck this later on today. We may be able to remove the chest tube later.
[2020-07-09] MEDS: GABAPENTIN 100 MG CAPSULE PO ×3 (08:29→20:54)
[2020-07-09] MEDS: DOCUSATE 100 MG CAPSULE PO ×2 (08:29→20:54)
[2020-07-09] MEDS: CELECOXIB 200 MG CAPSULE PO ×2 (08:29→20:55)
[2020-07-09] MEDS: methocarbamoL 500 MG TABLET PO ×3 (08:29→20:54)
[2020-07-09] MEDS: diazePAM 5 MG TABLET PO ×3 (08:29→20:55)
--- NOTE | 2020-07-09 11:00 | OT.IP.EVAL ---
Current Diagnoses Spinal stenosis, lumbar region with neurogenic claudication (07/07/20) Other intervertebral disc displacement, thoracic region (07/07/20) Surgery Performed Operation Date: 07/07/20 11:15 Actual Procedures p T89 anterior transpleural (through chest cavity) discectomy & anterior/ posterior instrumentated fusion w/ bone graft. L1-2, L3-4 laminectomies - Teodoro Webb MD Past Medical History (Last Updated 07/02/20 @ 13:24 by Armida Richmond RN) Back pain Depression Diabetes (10/2019) Diabetic ketoacidosis (10/2019) Diabetic neuropathy Hearing impaired History of Mohs micrographic surgery for skin cancer HLD (hyperlipidemia) CARLOS (obstructive sleep apnea) PAF (paroxysmal atrial fibrillation) Prostate cancer (~2003) Silent myocardial infarction Skin cancer Surgical History (Last Updated 07/02/20 @ 13:14 by Armida Richmond RN) History of vasectomy Hx of hernia repair Hx of prostatectomy (~2003) Occupational Therapy Inpatient Evaluation/Re-Eval M1 PT/OT-IP Prior Functional Status Start: 07/09/20 14:18 Freq: NEEDED Status: Active Protocol: Document 07/09/20 10:05 [facility] (Rec: 07/09/20 14:29 [facility] [id number]) Medical Review Prior Functional Status Medical History Reviewed Yes Communication WNL. Pt is an effective verbal communicator. Mobility and Gait Pt is typically independent for all mobility without assistive device. He lifts and stands long hours on his feet at baseline. Over the past few months, he has had worsening back pain and LLE weakness/pain which have necessitated use of SPC for stairs and 4WW for household distance mobility. His sitting tolerance has been limited to ~30 minutes and only able to stand for 1-2 minutes at at time. Activities of Daily Living and IADL's Pt states he has been able to don socks and slip on shoes without assist. He has not been able to shower due to limited standing tolerance. He has had bowel problems which briefly improved after BRITNEY but pt remains independent with toileting tasks. Pt states now having to lean on his dresser or sit for LB dressing needs. Prior Functional Level (Other details) Pt has had multiple falls secondary to pain and progressing weakness. Per H&P, pt has lost 30 pounds over the last few months. Social History Household Members spouse Living Arrangements House Number of Floors (Floors) Two Floors Number of Stairs To Enter/Railing? 3 KITTY through the garage entrance with support on the right side (water heater). Inside, pt climbs 13 steps with curved staircase and wide bilateral rails to access his bedroom and preferred bathroom. Pt has been using SPC in right hand, left railing, and spouse assist to climb steps. He is more confident descending stairs and will often do this without his to assist. 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 He lives in with his , Ina. Pt's spouse is a retired hospital admininstrator who now works as a labor relations consultant largely from home. M2 OT-IP Current Condition Start: 07/09/20 14:18 Freq: Status: Active Protocol: Document 07/09/20 10:05 [facility] (Rec: 07/09/20 14:29 [facility] [id number]) Occupational Therapy Current Condition Current Condition Evaluation Date 07/09/20 Treatment Diagnosis S/p T8-9- ant. transpleural discectomy and ant/post instrumental fusion L1- Diagnosis Onset Date 07/07/20 Post Operative Precautions Lumbar Precautions Log Roll,No Twisting,Limit Bending,Lifting Restriction of 10 lbs,Gait Belt above Incisional Area M3 OT- IP Subjective and Pain Start: 07/09/20 14:18 Freq: Status: Active Protocol: Document 07/09/20 10:05 [facility] (Rec: 07/09/20 14:29 [facility] [id number]) OT- Subjective Occupational Therapy Visit Type Type Initial Evaluation Visit Start Time 10:05 Visit Stop Time 11:00 Total Visit Minutes 55 Occupational Therapy Visit Comments Patient Comments Pt agreeable to try to get up with PT and OT . Patient/Caregiver Goals TO go home. OT Pain Assessment Pain When Pain Assessed During Mobility Pain Present Pain Present Pain Reported Location Lower Back Intensity 8 M4 OT- IP ADL's Start: 07/09/20 14:18 Freq: Status: Active Protocol: Document 07/09/20 10:05 [facility] (Rec: 07/09/20 14:29 [facility] [id number]) OT [id number] Comments OT Self-Feeding Comments Pt able to eat while sitting up in the hospital bed after set-up. OT ADL-Grooming Comments OT Grooming Comments Not performed. OT ADL-Oral Care Comments Oral Care Comments Nursing aid states pt did prior. OT ADL-Dressing General Eval Lower Body Dressing Ability Total Assistance Areas Needing Assistance Socks Comments OT Dressing Comments Dependent for socks. OT ADL-Toileting General Evaluation Toileting Ability Total Assistance Comments OT Toileting Comments Martin in place. OT ADL-Bathing Bathing Type Bathing Type Sponge Bath Comments OT Bathing Comments Nursing aid states did sponge bath with pt prior to OT/PT eval. M5 OT- IP IADL's Start: 07/09/20 14:18 Freq: Status: Active Protocol: Document 07/09/20 10:05 [facility] (Rec: 07/09/20 14:29 [facility] [id number]) OT-Instrumental Activities of Daily Living Home Safety Awareness Awareness of Need for Assistance at Home Good Awareness Home Safety Comments Pt's having to assist more for all needs due to his back pain. Meal Preparation Meal Preparation Caregiver Provides Assist Gin Clerk Gin Clerk Caregiver Provides Assist M6 OT- IP Functional Cognition Start: 07/09/20 14:18 Freq: Status: Active Protocol: Document 07/09/20 10:05 [facility] (Rec: 07/09/20 14:29 [facility] [id number]) Cognitive Factors Limiting Selfcare Function Cognitive Ability Level of Alertness Alert Patient Orientation Name,Place,Situation Attention Span Ability Capable of Focused Attention, Capable of Sustained Attention Ability to Follow Commands Able to Follow One Step Commands Cognitive Comments Cognitive Assessment Comments Pt able to follow one step commands for mobility needs. At times having trouble to focus due to having lots of pain. OT- Vision and Hearing OT- Hearing Assessment OT- Hearing Assessment WFL M7 OT- IP Mobility and Balance Start: 07/09/20 14:18 Freq: Status: Active Protocol: Document 07/09/20 10:05 [facility] (Rec: 07/09/20 14:29 [facility] [id number]) OT- Bed Mobility Assessment Rolling Type of Rolling Roll to Right Level of Assistance Maximum Assistance,2 Person Assistance Supine to Sit Supine to Sit Assist Maximum Assistance,2 Person Assistance Sit to Supine Sit to Supine Assist Total Assistance,2 Person Assistance OT-Transfer Assessment Comments Mobility Comments Pt just able to tolerate sitting at edge of bed with SBA to CGA and then wanting to lie back down. OT- Gait Assessment Comments Gait Ability Comments Not at this time. OT- Balance Assessment Sitting Balance and Reactions Static Sitting Balance Ability Fair M9 OT- IP Assessment and Plan Start: 07/09/20 14:18 Freq: Status: Active Protocol: Document 07/09/20 10:05 [facility] (Rec: 07/09/20 14:29 [facility] [id number]) OT Summary Assessment and Plan Potential Rehabilitation Potential Good Analytic Complexity at Evaluation Moderate Summary OT Impairments Pain,Balance,Functional Mobility,Grooming,Dressing, Toileting,Bathing,Toilet Transfers,Shower Transfers, Activity Tolerance Progress Towards Goals Slow Progress due to Pain,Slow Progress due to Medical Issues,Slow Progress due to Activity Tolerance Assessment Summary Pt mod complexity and main barriers are steps, decreased balance, now needing two person extensive assist for bed mobility needs and for ADl 's. Pt will benefit from skilled rehab prior to going home. Goals Grooming Goal Independent Dressing Goal Minimal Assistance Toileting Goal Minimal Assistance Bathing Goal Moderate Assistance Toilet Transfer Goal Minimal Assistance Shower Transfer Goal Minimal Assistance Patient/Caregiver Education Goal Demonstrate Post-Op Precautions,Caregiver Independent Assisting Patient Days to Meet Goals 20 Frequency of Treatment Frequency Of Treatment Once a Day Treatment Plan OT Treatment Plan ADL Training,Functional Cognition Training,Functional Mobility,Patient/Family Education,Discharge Planning Other Treatment Recommendations and Next Transfer with FWW to [facility] Treatment Focus MAX AX 2. Discharge Recommendations OT Discharge Recommendations SNF Rehab Home Equipment Needs BSC, FWW, shower chair with back Transportation Needs at Discharge Wheelchair/Cabulance,Stretcher /Ambulance
[2020-07-09] MEDS: INSULIN REGULAR 100 UNIT/ML 3 ML VIAL 8 UNIT SUBCUT ×3 (11:02→20:57)
[2020-07-09] MEDS: INSULIN NPH 100 UNIT/ML VIAL 18 UNIT SUBCUT ×2 (11:04→20:58)
[2020-07-09] MEDS: INSULIN ASPART 100 UNIT/ML INSULN PEN SUBCUT ×3 (11:05→17:07)
--- NOTE | 2020-07-09 11:21 | DI.RAD.S_ITS ---
PROCEDURE: XR CHEST 1V INDICATIONS: pneumothorax TECHNIQUE: One view of the chest was acquired. COMPARISON: [facility], CR, XR CHEST 1V, 07/09/2020, 5:19. FINDINGS: Surgical changes and devices: None. Lungs and pleura: Lungs are clear. No pleural effusions or pneumothorax. Mediastinum: Mediastinal contours appear normal. Heart size is normal. Bones and chest wall: Pedicular screw and pati fixation spanning T9 and T10 appears stable. IMPRESSION: No acute cardiopulmonary abnormality. Dictated by: Silviano Cordero M.D. on 07/09/2020 at 11:07 Approved by: Silviano Cordero M.D. on 07/09/2020 at 11:08
--- NOTE | 2020-07-09 11:58 | PT.IIE ---
Current Diagnoses Spinal stenosis, lumbar region with neurogenic claudication (07/07/20) Other intervertebral disc displacement, thoracic region (07/07/20) Surgery Performed Operation Date: 07/07/20 11:15 Actual Procedures p T89 anterior transpleural (through chest cavity) discectomy & anterior/ posterior instrumentated fusion w/ bone graft. L1-2, L3-4 laminectomies - Teodoro Webb MD Surgical History (Last Updated 07/02/20 @ 13:14 by Armida Richmond RN) History of vasectomy Hx of hernia repair Hx of prostatectomy (~2003) Medical History (Last Updated 07/02/20 @ 13:24 by Armida Richmond RN) Back pain Depression Diabetes (10/2019) Diabetic ketoacidosis (10/2019) Diabetic neuropathy Hearing impaired History of Mohs micrographic surgery for skin cancer HLD (hyperlipidemia) CARLOS (obstructive sleep apnea) PAF (paroxysmal atrial fibrillation) Prostate cancer (~2003) Silent myocardial infarction Skin cancer Physical Therapy Inpatient Evaluation/Re-Eval M1 PT/OT-IP Prior Functional Status Start: 07/08/20 08:36 Freq: NEEDED Status: Active Protocol: Document 07/09/20 11:52 AW (Rec: 07/09/20 12:04 AW [id number]) Medical Review Prior Functional Status Medical History Reviewed Yes Communication WNL. Pt is an effective verbal communicator. Mobility and Gait Pt is typically independent for all mobiity without assistive device. He lifts and stands long hours on his feet at baseline. Over the past few months, he has had worsening back pain and LLE weakness/pain which have necessitated use of SPC for stairs and 4WW for household distance mobility. His sitting tolerance has been limited to ~30 minutes and standing tolerance makes showers difficult. Activities of Daily Living and IADL's Pt states he has been able to don socks and slip on shoes without assist. He has not been able to shower due to limited standing tolerance. He has had bowel problems which briefly improved after BRITNEY but pt remains independent with toileting tasks. Prior Functional Level (Other details) Pt has had multiple falls secondary to pain and progressing weakness. Per H&P, pt has lost 30 pounds over the last few months. Social History Household Members spouse Living Arrangements House Number of Floors (Floors) Two Floors Number of Stairs To Enter/Railing? 3 KITTY through the garage entrance with support on the right side (water heater). Inside, pt climbs 13 steps with curved staircase and wide bilateral rails to access his bedroom and preferred bathroom. Pt has been using SPC in right hand, left railing, and spouse assist to climb steps. He is more confident descending stairs and will often do this without his to assist. 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 He lives in with his , Ina. Pt's spouse is a retired hospital admininstrator who now works as a design and sales consultant largely from home. M2 PT-IP Current Condition Start: 07/08/20 08:36 Freq: NEEDED Status: Active Protocol: Document 07/09/20 11:52 AW (Rec: 07/09/20 13:32 AW [id number]) Physical Therapy Current Condition Current Condition Evaluation Date 07/09/20 Treatment Diagnosis T8-9 transpleural ant discectomy, L1-2 L3-4 lami; difficulty in walking Onset Date 07/07/20 Precautions Lumbar Precautions Log Roll,No Twisting,Limit Bending,Lifting Restriction of 10 lbs,Gait Belt above Incisional Area M3 PT-IP Subjective Start: 07/08/20 08:36 Freq: NEEDED Status: Active Protocol: Document 07/09/20 11:52 AW (Rec: 07/09/20 13:32 AW [id number]) Subjective Physical Therapy Visit Type Type Initial Evaluation Visit Start Time 10:04 Visit Stop Time 10:58 Total Visit Minutes 54 Notes Co-eval with MELISSA Abernathy. CHRISTEN Lee assisted with line management. Physical Therapy Visit Comments Patient Comments It hurts all the time but more if I move at all. Patient Goals Return to normal activity without pain Therapy Pain Assessment Pain When Pain Assessed At Rest Pain Present Pain Present Pain Reported Location Lower Back Intensity 8 Scale Used 8/10 at rest; increased with movement Pain Behaviors Calling Out,Crying,Moaning, Restlessness Pain Management Techniques Re-positioning,Timing of Activity with Medications M4 PT-IP Mobility and Gait Start: 07/08/20 08:36 Freq: NEEDED Status: Active Protocol: Document 07/09/20 11:52 AW (Rec: 07/09/20 13:32 AW [id number]) PT-Bed Mobility Assessment Rolling Type of Rolling Log Rolling,Roll to Right,Roll to Left Level of Assist Maximal Assistance,2 Person Assistance Supine to Sit Supine to Sit Maximum Assistance,2 Person Assistance Sit to Supine Sit to Supine Total Assistance,2 Person Assistance Scooting Scooting Up and Down in Bed Dependent PT-Transfer Assessment Comments Mobility Comments Pt was lying on his left side as PT and OT arrived. Pt has multiple IV lines, chest tube, and Martin catheter. He reported resting pain at 8/10. PT and OT assessed lines and prepared for mobility. Supine BP was 102/67. Pt cried out in pain as the bed was flattened . He log rolled bilaterally with max 2PA and cues for all sequencing. From right sidelying, pt required assist to move his legs off the edge of the bed. OT and PT provided support and max 2PA from the back and the front, respectively, to right the pt' s trunk. Pt sat EOB with BUE support but complained of nausea and dizziness. BP was 95/69. Pt sat ~4 minutes but was unable to scoot himself toward EOB. Pt's symptoms did not clear, so PT and OT made the decision to assist him back to supine. With max 2PA, he laid down on his right side as PT elevated his legs to the bed. He then reverse log rolled onto his back. Pt wanted to try lying on his right side but was unable to find a good position and then complained of right shoulder pain even after repositioning. Attempted supine position with bed tilt to the left but pt did not tolerate. Eventually returned patient to left sidelying as his entered the room. Pt was left with nursing attending. Gait Assessment Comments Gait Comments Pt unable at this time. Stair Climbing Assessment Comments Stair Climbing Comments Unable at this time. PT-Balance Assessment Sitting Balance and Reactions Static Sitting Balance Ability Fair Dynamic Sitting Balance Ability Poor Comments Other Balance Tests/Deviations/Treatment Pt tolerated static sitting : but was unable to reach EOB for pre-standing activities. M5 PT-IP Objective Assessments Start: 07/08/20 08:36 Freq: NEEDED Status: Active Protocol: Document 07/09/20 11:52 AW (Rec: 07/09/20 14:05 AW [id number]) Orientation Orientation/Cognition Level of Alertness Alert Orientation Name,Day of Week,Place, Situation Language Function Ability No Deficits Noted Safety Awareness Understands Safety Issues Comments Pt appears highly anxious and guarded with all movement. Gross Range of Motion Lower Extremity ROM Assessment Bilaterally Impaired Impairments Left ankle AROM limited due to weakness. Strength Lower Extremity Strength Assessment Bilaterally Impaired Hip R 3-/5; L 2+/5 Ankle R 4/5; L 4-/5 Coordination Assessment Assessment Coordination Comments Unable to assess due to pain presentation Sensation Assessment Comments Sensation Comments Unable to assess due to pain presentation Muscle Tone Muscle Tone WNL Yes M6 PT-IP Treatment Start: 07/08/20 08:36 Freq: NEEDED Status: Active Protocol: Document 07/09/20 11:52 AW (Rec: 07/09/20 14:05 AW [id number]) Physical Therapy Treatment Education Education Provided Precautions,Post-Op Packet, Safety Other Treatments Other Treatment Performed Provided education on the role of PT, plan of care, and post op precautions. M7 PT-IP Assessment and Plan Start: 07/08/20 08:36 Freq: NEEDED Status: Active Protocol: Document 07/09/20 11:52 AW (Rec: 07/09/20 14:05 AW [id number]) PT Summary Assessment and Plan Potential Rehabilitation Potential Fair Status of Condition at Evaluation Unstable Summary Impairments Pain,ROM,Strength,Balance, Sensation Assessment Summary Saul is a 64 yo man seen for PT evaluation on POD2 following transpleural T8-9 anterior discectomy/fusion and L1-2 L3- 4 laminectomy. He had a planned chest tube postoperatively which remains in place today although it was on water seal at this visit. At baseline, pt is independent in all regards. 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 He has had a precipitous decline in function related to worsening back pain as well as left leg pain and weakness. In recent weeks, he has needed 4WW for household distances and has used railing plus SPC and assist from his spouse to manage stairs. On evaluation, pt required max assist for bed mobility. Sitting balance at EOB was fair to good but pt fatigued quickly and was limited by symptomatic hypotension. Pt is unsafe for discharge at this time. Pt will need to be further assessed for safe discharge recommendation. Goals Bed Mobility Goal Contact Guard Assistance Transfer Goal Standby Assistance,Front Wheeled Walker,Four Wheeled Walker Gait Goal Standby Assistance,Front Wheel Walker,Four Wheel Walker Gait Distance 200 Other Goals - up/down 13 steps with left rail ascending and SPC in opposite hand Days to Meet Goals 10 Frequency of Treatment Frequency Of Treatment Twice a Day Treatment Plan Physical Therapy Treatment Plan Bed Mobility Training,Transfer Training,Gait Training, Therapeutic Exercise,Balance Retraining,Post Op Education, Discharge Planning,Hot or Cold Pack,Neuromuscular Re-ed, Coordination Retraining,Manual Therapy Other Recommendations and Next Treatment bed mobility, standing, Focus transfer as tolerated Recommendations To Nursing Amount of Assist Needed 2 Person Assist Discharge Recommendations PT Discharge Recommendations Home with 24/ Assist,Home Health,SNF Rehab Other Discharge Recommendations 24/7 assist with all mobility and subacute rehab Equipment Needed for Home Before BSC, raised toilet seat, Discharge shower chair, FWW if unstable with 4WW
--- NOTE | 2020-07-09 12:02 | DI.RAD.S_ITS ---
PROCEDURE: XR CHEST 1V INDICATIONS: s/p chest tube removal TECHNIQUE: One view of the chest was acquired. COMPARISON: [facility], CR, XR CHEST 1V, 07/08/2020, 16:29. [facility], CR, XR CHEST 1V, 07/09/2020, 5:19. [facility], CR, XR CHEST 1V, 07/09/2020, 10:54. FINDINGS: Surgical changes and devices: Lower thoracic spine fixation hardware is seen. Lungs and pleura: On this semiupright portable chest examination, no large pneumothorax or large pleural effusions are seen. No focal infiltrates are seen. Mediastinum: Mediastinal contours appear normal. Heart size is normal. Bones and chest wall: Right-sided soft tissue gas is seen. IMPRESSION: No recurrent pneumothorax can be seen on this semiupright study. Right-sided soft tissue gas again seen. Dictated by: Jarocho Wheatley M.D. on 07/09/2020 at 11:23 Approved by: Jarocho Wheatley M.D. on 07/09/2020 at 11:24
--- NOTE | 2020-07-09 14:20 | CM.DPNOTE ---
DCP Cont This [facility]LL WEIGHER following now for DC planning. Spoke w/[facility] PT. Patient is moving very slowly today, was able to sit EOB, still in a great deal of pain. SNF recommended at this time. Spoke then w/TONE [facility] who suggests SNF d/t patient's slow progress; Patient's second chest tube was pulled this morning, hopeful now patient will not require another chest tube placed. Spoke at length w/patient and spouse this afternoon to review DCP. Spouse hopeful to take patient home upon DC; explains that patient has had debilitating pain for at least a month and has required assistance from her w/most ADLs. Patient has not been able to manage stairs, and has been mostly bed/ w/c bound. Patient and spouse have an adult dtr and teenage grandson that can physically assist patient upon DC home. 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 Patient remains hopeful this surgery will bring him relief but understands it will take time. Then reviewed option of SNF (private pay); patient and spouse request [facility] if SNF is the inevitable recommendation, but specify that they likely could only cover cost for approx. 2 weeks. TC placed to [facility]; she does not have any beds until Mon/Tu. She did provide approx. quote which was $10,500 monthly cost for room and board and approx. $150-200 an hr for therapies, PT/OT (cost w/o insurance). [facility] unsure whether they could accept patient, even if there was a bed available, because billing room and board and for PT/OT sessions (based on patient's needs) can be very expensive, down payment would also be required. Relayed above to patient/spouse. Spouse reiterates they may be able to pay for 2 weeks. Spouse admits patient needs to be able to participate in his care/transfers in order to safely return home, even w/assist from spouse and family. Spouse requests another conversation re: DCP over next 24-48 hrs Following closely, hopeful patient will improve functionally over the next 24-48 hrs. Will research option for Home health, paying out of pocket, as needed. Yuridia Parr, ROLL WEIGHER
--- NOTE | 2020-07-09 14:20 | CM.DPNOTE ---
Faxed clinicals on 07/09/20 to [facility]- per Margarette. Will scan confirmation to EMR. CITLALY Romerot.
--- NOTE | 2020-07-09 15:13 | PC.NURSE ---
Addendum entered by Gin Lezama R.N. 07/09/20 15:36: Will remain ICU status until after blood, per morning. Addendum entered by Gin Lezama R.N. 07/09/20 15:18: Up with PT this afternoon to edge of bed, unable to weight bear, will continue to work on mobility. Await PRBC trsnfusion. SNF option discussed for dc by CM Original Note: Am shift Pt is feeling better this shift, pain remains uncontrolled. IV Dilaudid and PO norco given. PO valium added. Chest tube changed to water seal by Dr marie. one unit of PRBC ordered. unavailable until this afternoon, Dr marie aware and ok with this plan. IVF infusing. CXR improving this shift. @ 1315, Dr Yepez returned to remove chest tube. Out and xray obtained.
--- NOTE | 2020-07-09 15:19 | PT.IPTN ---
Current Diagnoses Spinal stenosis, lumbar region with neurogenic claudication (07/07/20) Other intervertebral disc displacement, thoracic region (07/07/20) Surgery Performed Operation Date: 07/07/20 11:15 Actual Procedures p T89 anterior transpleural (through chest cavity) discectomy & anterior/ posterior instrumentated fusion w/ bone graft. L1-2, L3-4 laminectomies - Teodoro Webb MD Physical Therapy Treatment Note M2 PT-IP Current Condition Start: 07/08/20 08:36 Freq: NEEDED Status: Active Protocol: Document 07/09/20 11:52 AW (Rec: 07/09/20 13:32 AW [id number]) Physical Therapy Current Condition Current Condition Evaluation Date 07/09/20 Treatment Diagnosis T8-9 transpleural ant discectomy, L1-2 L3-4 lami; difficulty in walking Onset Date 07/07/20 Precautions Lumbar Precautions Log Roll,No Twisting,Limit Bending,Lifting Restriction of 10 lbs,Gait Belt above Incisional Area M3 PT-IP Subjective Start: 07/08/20 08:36 Freq: NEEDED Status: Active Protocol: Document 07/09/20 14:59 AW (Rec: 07/09/20 15:19 AW [id number]) Subjective Physical Therapy Visit Type Type Treatment Note Visit Start Time 14:20 Visit Stop Time 14:54 Total Visit Minutes 34 Notes Chest tube and arterial line have been d/c. PT coordinated treatment with RN who medicated with IV Physical Therapy Visit Comments Patient Comments Pt is willing to participate with PT. Therapy Pain Assessment Pain When Pain Assessed At Rest Pain Present Pain Present Pain Reported Location Lower Back Intensity 8 Scale Used 8/10 at rest; increased with movement Pain Behaviors Facial Grimacing,[place]incing Pain Management Techniques Re-positioning,Timing of Activity with Medications M4 PT-IP Mobility and Gait Start: 07/08/20 08:36 Freq: NEEDED Status: Active Protocol: Document 07/09/20 14:59 AW (Rec: 07/09/20 15:19 AW [id number]) PT-Bed Mobility Assessment Rolling Type of Rolling Log Rolling,Roll to Right Level of Assist Maximal Assistance,1 Person Assistance Supine to Sit Supine to Sit Maximum Assistance,1 Person Assistance Sit to Supine Sit to Supine Maximum Assistance,2 Person Assistance Scooting Scooting Up and Down in Bed Dependent PT-Transfer Assessment Comments Mobility Comments Pt was lying on his left side as PT arrived. With bed flattened, pt rolled to his back and completed log roll to his right side and sidelying to sit with max A x 1. Pt sat EOB with poor balance requiring assist at all times ranging from mod 1PA to max 1PA. Pt leaned heavily to his left side with severely flexed /kypohotic posture and had difficulty correcting to midline. With bed in lowest position, he tried to use the bed rail to pull himself toward EOB but had difficulty coordinating the movement with his left hand. With assist, he was ultimately able to get his feet in contact with the floor, but pt's trunk control still did not improve. PT called for assist and AUTOMATIC CORN GRINDER OPERATOR/RN arrived. Pt sat for a total of 10 minutes with mod assist up to max assist as he fatigued. RN changed lumbar dressing and then AUTOMATIC CORN GRINDER OPERATOR and PT assisted pt to reverse log roll to supine max A x 2. Pt was positioned in supine with HOB raised and knees gatched. PT left pt with AUTOMATIC CORN GRINDER OPERATOR attending. Gait Assessment Comments Gait Comments Pt unable at this time. Stair Climbing Assessment Comments Stair Climbing Comments Unable at this time. PT-Balance Assessment Sitting Balance and Reactions Static Sitting Balance Ability Poor Dynamic Sitting Balance Ability Poor Comments Other Balance Tests/Deviations/Treatment Pt able to get feet on floor : at this session but unable to transfer weight forward for pre-standing activities. M5 PT-IP Objective Assessments Start: 07/08/20 08:36 Freq: NEEDED Status: Active Protocol: Document 07/09/20 11:52 AW (Rec: 07/09/20 14:05 AW [id number]) Orientation Orientation/Cognition Level of Alertness Alert Orientation Name,Day of Week,Place, Situation Language Function Ability No Deficits Noted Safety Awareness Understands Safety Issues Comments Pt appears highly anxious and guarded with all movement. Gross Range of Motion Lower Extremity ROM Assessment Bilaterally Impaired Impairments Left ankle AROM limited due to weakness. Strength Lower Extremity Strength Assessment Bilaterally Impaired Hip R 3-/5; L 2+/5 Ankle R 4/5; L 4-/5 Coordination Assessment Assessment Coordination Comments Unable to assess due to pain presentation Sensation Assessment Comments Sensation Comments Unable to assess due to pain presentation Muscle Tone Muscle Tone WNL Yes M6 PT-IP Treatment Start: 07/08/20 08:36 Freq: NEEDED Status: Active Protocol: Document 07/09/20 14:59 AW (Rec: 07/09/20 15:19 AW [email or web address]) Physical Therapy Treatment Education Education Provided Precautions,Safety M7 PT-IP Assessment and Plan Start: 07/08/20 08:36 Freq: NEEDED Status: Active Protocol: Document 07/09/20 14:59 AW (Rec: 07/09/20 15:19 AW [email or web address]) PT Summary Assessment and Plan Potential Rehabilitation Potential Fair Status of Condition at Evaluation Unstable Summary Impairments Pain,ROM,Strength,Balance, Sensation Assessment Summary Saul was able to sit EOB longer this PM but with poor balance . He exhibits strong leftward lean and excessive thoracic kyphosis in sitting which he is unable to correct. Pt continues to lack strength for standing. Pt's states they would be able to set up a bed on the lower level if pt goes home. She also reports there are only 2 steps at the front entrance; there is no railing but the steps are deep enough to accommodate a FWW. She also states their grandson and daughter in law would be available to provide assist. Pt will require 24/7 assist with all mobility and would benefit from subacute rehab whether SNF or home health. Goals Bed Mobility Goal Contact Guard Assistance Transfer Goal Standby Assistance,Front Wheeled Walker,Four Wheeled Walker Gait Goal Standby Assistance,Front Wheel Walker,Four Wheel Walker Gait Distance 200 Other Goals - up/down 13 steps with left rail ascending and SPC in opposite hand Days to Meet Goals 10 Frequency of Treatment Frequency Of Treatment Twice a Day Treatment Plan Physical Therapy Treatment Plan Bed Mobility Training,Transfer Training,Gait Training, Therapeutic Exercise,Balance Retraining,Post Op Education, Discharge Planning,Hot or Cold Pack,Neuromuscular Re-ed, Coordination Retraining,Manual Therapy Recommendations To Nursing Amount of Assist Needed 2 Person Assist Discharge Recommendations PT Discharge Recommendations Home with 24/7 Assist,Home Health,SNF Rehab Other Discharge Recommendations 24/7 assist with all mobility and subacute rehab Equipment Needed for Home Before BSC, raised toilet seat, Discharge shower chair, FWW if unstable with 4WW
[2020-07-09] MEDS: ATORVASTATIN 20 MG TABLET 40 MG PO (17:12)
[2020-07-09] MEDS: hydrOXYzine pamoate 25 MG CAPSULE PO (17:56)
[2020-07-09] MEDS: SENNOSIDES 8.6 MG TABLET 17.2 MG PO (20:54)
--- NOTE | 2020-07-09 22:40 | PC.NURSE ---
shift note: Pt continues to have 8/10 pain with any movement, reluctant to move side to side. Encouraged to cough and deep breathe. 2 units PRBC given this shift without complications. Upper back incision with slight shadow drainage, lower back and R side dressing dry and intact.
[2020-07-10] VITALS (21 sets, daily range): BP systolic 129–183; BP diastolic 65–88; PULSE 65–86; RESP 11–22; TEMP 36.5–37.4; O2SAT 95–99
[2020-07-10] MEDS: HYDROCODONE/ACET 5/325 TABLET 2 TAB PO ×4 (00:51→18:02)
[2020-07-10 05:13] LABS: Hemoglobin 11.2 g/dL (13.5-17.5)
[2020-07-10 05:27] LABS: Hematocrit 32.9 % (41-53)
--- NOTE | 2020-07-10 06:22 | PC.NURSE ---
Pt no void since removal of curry. Pt reports does not need to use restroom. Bladder scan showng 300ml urine. Encouraged pt to continue to drink more fluids and to try to void.
--- NOTE | 2020-07-10 07:45 | PM.PNPO.1 ---
Subjective Subjective Date Patient Seen: 07/10/20 Time Patient Seen: 07:45 Interval history: He is breathing better now that he no longer has the chest tube attached. Pain is about 6/10 along the side abdomen. Legs are feeling better. Exam Vital Signs (past 8 hours): - 07/09/20 23:50 07/10/20 00:00 07/10/20 00:30 Temperature 97.7 F Pulse Rate 78 76 76 Respiratory Rate 17 17 13 Blood Pressure 129/67 Pulse Oximetry 99 99 99 07/10/20 01:00 07/10/20 01:30 07/10/20 02:00 Temperature Pulse Rate 78 74 72 Respiratory Rate 15 14 17 Blood Pressure 141/71 H 137/65 Pulse Oximetry 97 96 95 07/10/20 02:30 07/10/20 03:00 07/10/20 03:05 Temperature Pulse Rate 70 69 67 Respiratory Rate 14 17 17 Blood Pressure 143/66 H 143/66 H Pulse Oximetry 96 96 95 07/10/20 03:30 07/10/20 04:00 07/10/20 04:30 Temperature Pulse Rate 68 66 65 Respiratory Rate 16 17 19 Blood Pressure 147/71 H Pulse Oximetry 96 96 96 07/10/20 05:00 07/10/20 05:30 07/10/20 06:00 Temperature Pulse Rate 68 65 66 Respiratory Rate 18 16 12 Blood Pressure 161/74 H 172/79 H Pulse Oximetry 96 98 97 07/10/20 06:05 Temperature Pulse Rate 68 Respiratory Rate 11 L Blood Pressure 160/79 H Pulse Oximetry 99 Oxygen Delivery Method Room Air Oxygen Flow Rate 0 Const Orientation: alert and oriented x3 Back/Spine/Pelvis Other: Minimal drainage posterior and lateral dressings. 5/5 motor both lower extremities except 4/5 bilateral hip flexor and left quads, a little bit better than yesterday. Objective Labs Result Diagrams: 07/10/20 04:31 Labs: Laboratory Results - last 24 hr 07/07/20 07/10/20 15:23 04:31 Hgb 11.2 L Hct 32.9 L Blood Type B Positive Antibody Screen Negative Crossmatch See Detail Assessment & Plan Post-op Postoperative Procedures: Procedures Operation Date: 07/07/20 11:15 Actual Procedures Side Surgeon p T89 anterior transpleural (through chest cavity) discectomy & anterior/ posterior instrumentated fusion w/ bone graft. L1-2, L3-4 laminectomies Teodoro Webb MD His H&H looks good today. Continue to mobilize and we will transfer him out of the ICU to a regular floor bed. He has been very slow to mobilize so far. I am going to start him on some Lovenox for additional DVT prophylaxis. Anticipate discharge home in 1-2 more days.
[2020-07-10] MEDS: GABAPENTIN 100 MG CAPSULE PO ×3 (08:37→20:40)
[2020-07-10] MEDS: methocarbamoL 500 MG TABLET PO ×3 (08:37→20:40)
[2020-07-10] MEDS: DOCUSATE 100 MG CAPSULE PO ×2 (08:37→20:40)
[2020-07-10] MEDS: ENOXAPARIN 40 MG/0.4 ML SYRINGE SUBCUT (08:37)
[2020-07-10] MEDS: CELECOXIB 200 MG CAPSULE PO ×2 (08:37→20:40)
[2020-07-10] MEDS: HYDROMORPHONE 1 MG INJ IV ×2 (08:38→12:32)
[2020-07-10] MEDS: INSULIN NPH 100 UNIT/ML VIAL 18 UNIT SUBCUT (08:49)
[2020-07-10] MEDS: diazePAM 5 MG TABLET PO (08:58)
[2020-07-10] MEDS: INSULIN REGULAR 100 UNIT/ML 3 ML VIAL 8 UNIT SUBCUT ×2 (08:59→14:24)
--- NOTE | 2020-07-10 11:30 | OT.IP.TRT ---
Current Diagnoses Spinal stenosis, lumbar region with neurogenic claudication (07/07/20) Other intervertebral disc displacement, thoracic region (07/07/20) Surgery Performed Operation Date: 07/07/20 11:15 Actual Procedures p T89 anterior transpleural (through chest cavity) discectomy & anterior/ posterior instrumentated fusion w/ bone graft. L1-2, L3-4 laminectomies - Teodoro Webb MD Occupational Therapy Treatment Note M2 OT-IP Current Condition Start: 07/09/20 14:18 Freq: Status: Active Protocol: Document 07/09/20 10:05 [facility] (Rec: 07/09/20 14:29 [facility] [id number]) Occupational Therapy Current Condition Current Condition Evaluation Date 07/09/20 Treatment Diagnosis S/p T8-9- ant. transpleural discectomy and ant/post instrumental fusion L1- Diagnosis Onset Date 07/07/20 Post Operative Precautions Lumbar Precautions Log Roll,No Twisting,Limit Bending,Lifting Restriction of 10 lbs,Gait Belt above Incisional Area M3 OT- IP Subjective and Pain Start: 07/09/20 14:18 Freq: Status: Active Protocol: Document 07/10/20 14:54 [facility] (Rec: 07/10/20 15:02 [facility] [id number]) OT- Subjective Occupational Therapy Visit Type Type Progress Note Visit Start Time 11:03 Visit Stop Time 11:30 Total Visit Minutes 27 Notes Pt's present throughout session. OT Pain Assessment Pain When Pain Assessed At Rest Pain Present Pain Present Pain Reported Location Lower Back Intensity 7 Scale Used Numeric (0 - 10) Management Techniques Distraction,Re-positioning, Timing of Activity with Medications M4 OT- IP ADL's Start: 07/09/20 14:18 Freq: Status: Active Protocol: Document 07/09/20 10:05 [facility] (Rec: 07/09/20 14:29 [facility] [id number]) OT [id number] Comments OT Self-Feeding Comments Pt able to eat while sitting up in the hospital bed after set-up. OT ADL-Grooming Comments OT Grooming Comments Not performed. OT ADL-Oral Care Comments Oral Care Comments Nursing aid states pt did prior. OT ADL-Dressing General Eval Lower Body Dressing Ability Total Assistance Areas Needing Assistance Socks Comments OT Dressing Comments Dependent for socks. OT ADL-Toileting General Evaluation Toileting Ability Total Assistance Comments OT Toileting Comments Martin in place. OT ADL-Bathing Bathing Type Bathing Type Sponge Bath Comments OT Bathing Comments Nursing aid states did sponge bath with pt prior to OT/PT eval. M5 OT- IP IADL's Start: 07/09/20 14:18 Freq: Status: Active Protocol: Document 07/09/20 10:05 [facility] (Rec: 07/09/20 14:29 [id number] OT-Instrumental Activities of Daily Living Home Safety Awareness Awareness of Need for Assistance at Home Good Awareness Home Safety Comments Pt's having to assist mnore for all needs due to his back pain. Meal Preparation Meal Preparation Caregiver Provides Assist C.O.D. Clerk C.O.D. Clerk Caregiver Provides Assist M6 OT- IP Functional Cognition Start: 07/09/20 14:18 Freq: Status: Active Protocol: Document 07/09/20 10:05 [facility] (Rec: 07/09/20 14:29 [id number] Cognitive Factors Limiting Selfcare Function Cognitive Ability Level of Alertness Alert Patient Orientation Name,Place,Situation Attention Span Ability Capable of Focused Attention, Capable of Sustained Attention Ability to Follow Commands Able to Follow One Step Commands Cognitive Comments Cognitive Assessment Comments Pt able to follow one step commands for mobility needs. At times having trouble to focus due to having lots of pain. OT- Vision and Hearing OT- Hearing Assessment OT- Hearing Assessment WFL M7 OT- IP Mobility and Balance Start: 07/09/20 14:18 Freq: Status: Active Protocol: Document 07/10/20 14:54 [facility] (Rec: 07/10/20 15:02 [facility] [id number]) OT- Balance Assessment Sitting Balance and Reactions Static Sitting Balance Ability Poor Comments Other Balance Tests/Deviations/Treatment this session focused on : sitting balance and posture exercises. Pt up in chair when OT entered. Pt needed min a for unsupported sitting at start but was able to maintian upright sitting with hands on knees with set up and SBA for a limited amount of time. Pt performed neck exercises during session for holding head up with posture. Pt with extreme kyphotic posture with anterior rolled shoulders. M9 OT- IP Assessment and Plan Start: 07/09/20 14:18 Freq: Status: Active Protocol: Document 07/10/20 14:54 [facility] (Rec: 07/10/20 15:02 CGR [id number]) OT Summary Assessment and Plan Potential Rehabilitation Potential Good Analytic Complexity at Evaluation Moderate Summary OT Impairments Pain,Balance,Functional Mobility,Grooming,Dressing, Toileting,Bathing,Toilet Transfers,Shower Transfers, Activity Tolerance Progress Towards Goals Slow Progress due to Pain,Slow Progress due to Medical Issues,Slow Progress due to Activity Tolerance Assessment Summary Pt participated insitting balance and posture exercises but is unable to tolerate much activity. Pt needs rest breaks between postural exercises. Goals Grooming Goal Independent Dressing Goal Minimal Assistance Toileting Goal Minimal Assistance Bathing Goal Moderate Assistance Toilet Transfer Goal Minimal Assistance Shower Transfer Goal Minimal Assistance Patient/Caregiver Education Goal Demonstrate Post-Op Precautions,Caregiver Independent Assisting Patient Days to Meet Goals 20 Frequency of Treatment Frequency Of Treatment Once a Day Treatment Plan OT Treatment Plan ADL Training,Functional Cognition Training,Functional Mobility,Patient/Family Education,Discharge Planning Other Treatment Recommendations and Next Transfer with FWW to [facility] Treatment Focus MAX AX 2. Discharge Recommendations OT Discharge Recommendations SNF Rehab Other Discharge Recommendations Per CM, pt is self pay and unlikley to be able to go to SNF. Home Equipment Needs BSC, FWW, shower chair with back Transportation Needs at Discharge Wheelchair/Cabulance,Stretcher /Ambulance
--- NOTE | 2020-07-10 11:49 | PT.IPTN ---
Current Diagnoses Spinal stenosis, lumbar region with neurogenic claudication (07/07/20) Other intervertebral disc displacement, thoracic region (07/07/20) Surgery Performed Operation Date: 07/07/20 11:15 Actual Procedures p T89 anterior transpleural (through chest cavity) discectomy & anterior/ posterior instrumentated fusion w/ bone graft. L1-2, L3-4 laminectomies - Teodoro Webb MD Physical Therapy Treatment Note M2 PT-IP Current Condition Start: 07/08/20 08:36 Freq: NEEDED Status: Active Protocol: Document 07/09/20 11:52 AW (Rec: 07/09/20 13:32 AW [id number]) Physical Therapy Current Condition Current Condition Evaluation Date 07/09/20 Treatment Diagnosis T8-9 transpleural ant discectomy, L1-2 L3-4 lami; difficulty in walking Onset Date 07/07/20 Precautions Lumbar Precautions Log Roll,No Twisting,Limit Bending,Lifting Restriction of 10 lbs,Gait Belt above Incisional Area M3 PT-IP Subjective Start: 07/08/20 08:36 Freq: NEEDED Status: Active Protocol: Document 07/10/20 11:35 HH (Rec: 07/10/20 11:49 [id number]) Subjective Physical Therapy Visit Type Type Treatment Note Visit Start Time 10:05 Visit Stop Time 10:42 Total Visit Minutes 37 Notes attended the last 10 mins of the session. Co-tx with SPT El Number of [employer] CUSTODIAN Visits 0 Physical Therapy Visit Comments Patient Comments Pt is willing to participate with PT. Therapy Pain Assessment Pain When Pain Assessed At Rest Pain Present Pain Present Pain Reported M4 PT-IP Mobility and Gait Start: 07/08/20 08:36 Freq: NEEDED Status: Active Protocol: Document 07/10/20 11:35 (Rec: 07/10/20 11:49 [id number]) PT-Bed Mobility Assessment Rolling Type of Rolling Log Rolling,Roll to Right Level of Assist Maximal Assistance,1 Person Assistance Supine to Sit Supine to Sit Maximum Assistance,1 Person Assistance Scooting Scooting to Edge of Bed Moderate Assistance PT-Transfer Assessment Sit to and From Stand Sit to and from Stand Moderate Assistance,1 Person Assistance,Use of Upper Extremities Equipment Transfer Assistive Device Gait Belt,Front Wheeled Walker Orthotic/Prosthetic Devices or Brace: No Transfers Transfer Destination Bed,Chair Transfer Technique Stand Pivot Transfer Ability Level of Assist Moderate Assistance,1 Person Assistance,Use of Upper Extremities Comments Mobility Comments Pt was lying on his back upon PT and SPT arrival. BP supine = 134/67 He stated he felt better today and agreed to attempt chair transfer. Pt needed min A to bend his knees at first followed by max A to roll onto his R side followed by maxA x 1 for SL to sit at EOB. Pt has difficulty maintaining trunk extension d/ t pain and needed bedrails x2 for support. He then needed mod A to scoot towards EOB. Pt sat there for 5 mins to have his grown changed by this PT but he needed FWW for trunk support. He denies increased discomfort. Bed was then slightly elevated and this PT provided L knee block to assist pt STS with mod A. Pt completed it with the first trial and he did need tactile cue to maintain L knee extended. Pt then slowly scoot laterally and pivoted towards his R side. Pt showed L Leg drag but he was able to maintain balance. He also needed cues for steps sequence and walker management. He was then able to descend to chair with UEs on walker. Pt explained he wasnt able to place his UEs on chairs d/t poor trunk control. Pt then sat in chair comfortably in recline position. BP 102/55 initially but went back to 121 /64 after 2 mins. Denies increase in discomfort. Gait Assessment Comments Gait Comments Pt unable at this time. Stair Climbing Assessment Comments Stair Climbing Comments Unable at this time. PT-Balance Assessment Sitting Balance and Reactions Static Sitting Balance Ability Poor Dynamic Sitting Balance Ability Poor Standing Balance and Reactions Static Standing Balance Ability Poor Dynamic Standing Balance Ability Poor Device Used FWW Comments Other Balance Tests/Deviations/Treatment able to complete lateral : weight in standing with support on FWW M5 PT-IP Objective Assessments Start: 07/08/20 08:36 Freq: NEEDED Status: Active Protocol: Document 07/09/20 11:52 AW (Rec: 07/09/20 14:05 AW [id number]) Orientation Orientation/Cognition Level of Alertness Alert Orientation Name,Day of Week,Place, Situation Language Function Ability No Deficits Noted Safety Awareness Understands Safety Issues Comments Pt appears highly anxious and guarded with all movement. Gross Range of Motion Lower Extremity ROM Assessment Bilaterally Impaired Impairments Left ankle AROM limited due to weakness. Strength Lower Extremity Strength Assessment Bilaterally Impaired Hip R 3-/5; L 2+/5 Ankle R 4/5; L 4-/5 Coordination Assessment Assessment Coordination Comments Unable to assess due to pain presentation Sensation Assessment Comments Sensation Comments Unable to assess due to pain presentation Muscle Tone Muscle Tone WNL Yes M6 PT-IP Treatment Start: 07/08/20 08:36 Freq: NEEDED Status: Active Protocol: Document 07/09/20 14:59 AW (Rec: 07/09/20 15:19 AW [id number]) Physical Therapy Treatment Education Education Provided Precautions,Safety M7 PT-IP Assessment and Plan Start: 07/08/20 08:36 Freq: NEEDED Status: Active Protocol: Document 07/10/20 11:35 HH (Rec: 07/10/20 11:49 HH [id number]) PT Summary Assessment and Plan Potential Rehabilitation Potential Fair Status of Condition at Evaluation Evolving Summary Impairments Pain,ROM,Strength,Balance, Sensation Progress Towards Goals Slow Progress due to Pain,Slow Progress due to Medical Issues,Slow Progress due to Activity Tolerance,Slow Progress - Other Assessment Summary Saul shows progress today with improved trunk control and able to complete bed mobility max A and bed to chair transfer with mod A. His LLE cont to be weak and needed knee block for stability. Pt cont to have difficulty to maintain upright position d/t pain. Will cont monitor his progress but skilled rehab would be an ideal option for him at this point d/t extensive care/assistance needed. Goals Bed Mobility Goal Contact Guard Assistance Transfer Goal Standby Assistance,Front Wheeled Walker,Four Wheeled Walker Gait Goal Standby Assistance,Front Wheel Walker,Four Wheel Walker Gait Distance 200 Other Goals - up/down 13 steps with left rail ascending and SPC in opposite hand Days to Meet Goals 10 Frequency of Treatment Frequency Of Treatment Twice a Day Treatment Plan Physical Therapy Treatment Plan Bed Mobility Training,Transfer Training,Gait Training, Therapeutic Exercise,Balance Retraining,Post Op Education, Discharge Planning,Hot or Cold Pack,Neuromuscular Re-ed, Coordination Retraining,Manual Therapy Other Recommendations and Next Treatment bed mobility, standing, Focus transfer as tolerated Recommendations To Nursing Amount of Assist Needed 2 Person Assist Discharge Recommendations PT Discharge Recommendations Home with 24/7 Assist,Home Health,SNF Rehab Other Discharge Recommendations 24/7 assist with all mobility and subacute rehab Equipment Needed for Home Before BSC, raised toilet seat, Discharge shower chair, FWW if unstable with 4WW Transportation Needs at Discharge Stretcher/Ambulance
[2020-07-10] MEDS: hydrOXYzine pamoate 25 MG CAPSULE PO (12:32)
--- NOTE | 2020-07-10 14:02 | PC.NURSE ---
Am shift Pt is still having significant pain. post op day 3, PT able to ambulate Pt to chair and in room. NOrco and IV dilaudid, and po valium, vistaril. Call into Dr Webb, and fax and call into T[facility]ANCO. Report given to TONE Chappell for transferred care.
--- NOTE | 2020-07-10 14:09 | PT.IPTN ---
Current Diagnoses Spinal stenosis, lumbar region with neurogenic claudication (07/07/20) Other intervertebral disc displacement, thoracic region (07/07/20) Surgery Performed Operation Date: 07/07/20 11:15 Actual Procedures p T89 anterior transpleural (through chest cavity) discectomy & anterior/ posterior instrumentated fusion w/ bone graft. L1-2, L3-4 laminectomies - Teodoro Webb MD Physical Therapy Treatment Note M2 PT-IP Current Condition Start: 07/08/20 08:36 Freq: NEEDED Status: Active Protocol: Document 07/09/20 11:52 AW (Rec: 07/09/20 13:32 AW [id number]) Physical Therapy Current Condition Current Condition Evaluation Date 07/09/20 Treatment Diagnosis T8-9 transpleural ant discectomy, L1-2 L3-4 lami; difficulty in walking Onset Date 07/07/20 Precautions Lumbar Precautions Log Roll,No Twisting,Limit Bending,Lifting Restriction of 10 lbs,Gait Belt above Incisional Area M3 PT-IP Subjective Start: 07/08/20 08:36 Freq: NEEDED Status: Active Protocol: Document 07/10/20 13:52 HH (Rec: 07/10/20 14:09 HH [id number]) Subjective Physical Therapy Visit Type Type Treatment Note Visit Start Time 13:16 Visit Stop Time 13:30 Total Visit Minutes 14 Notes co-tx with SPT El Reyes. Number of YARD WORKER Visits 0 Physical Therapy Visit Comments Patient Comments Pt requested to return to bed d/t pain. Therapy Pain Assessment Pain When Pain Assessed At Rest Pain Present Pain Present Pain Reported Location Lower Back Intensity 6 Scale Used 6/10 at rest; increased with movement Pain Behaviors Facial Grimacing,Wincing Pain Management Techniques Re-positioning,Timing of Activity with Medications M4 PT-IP Mobility and Gait Start: 07/08/20 08:36 Freq: NEEDED Status: Active Protocol: Document 07/10/20 13:52 HH (Rec: 07/10/20 14:09 [id number]) PT-Bed Mobility Assessment Rolling Type of Rolling Log Rolling Level of Assist Maximal Assistance,1 Person Assistance Sit to Supine Sit to Supine Maximum Assistance,2 Person Assistance Scooting Scooting to Edge of Bed Moderate Assistance PT-Transfer Assessment Sit to and From Stand Sit to and from Stand Moderate Assistance,2 Person Assistance,Use of Upper Extremities Equipment Transfer Assistive Device Gait Belt,Front Wheeled Walker Orthotic/Prosthetic Devices or Brace: No Transfers Transfer Destination Bed,Chair Transfer Technique Stand Pivot Transfer Ability Level of Assist Moderate Assistance,2 Person Assistance,Use of Upper Extremities Comments Mobility Comments Pt was in low chair upon PT and SPT arrival. Nursing requested to assist pt to transfer back to bed for room transfer and pt agreed to it. BP in seated 112/60. He needed modA initially to scoot at edge of low chair. He then pushed off from chair armrest with RUE and LUE on FWW with max A x2p. L knee block provided and assisted also needed to placed his RUE from chair to FWW d/t poor trunk control. Pt then slowly pivot to his L side with assistance on walker management and steps sequence. He was then able to back up and descend slowly with UEs on FWW. He required 2p max A on shoulders and legs for sit to SL followed by log roll back to center of bed. Placed 2 pillows underneath knees and ankle to prevent pressure injury. SCD activated . Handed it off to nursing for room transfer Gait Assessment Comments Gait Comments Pt unable at this time. Stair Climbing Assessment Comments Stair Climbing Comments Unable at this time. PT-Balance Assessment Sitting Balance and Reactions Static Sitting Balance Ability Poor Dynamic Sitting Balance Ability Poor Standing Balance and Reactions Static Standing Balance Ability Poor Dynamic Standing Balance Ability Poor Device Used FWW M5 PT-IP Objective Assessments Start: 07/08/20 08:36 Freq: NEEDED Status: Active Protocol: Document 07/09/20 11:52 AW (Rec: 07/09/20 14:05 AW [id number]) Orientation Orientation/Cognition Level of Alertness Alert Orientation Name,Day of Week,Place, Situation Language Function Ability No Deficits Noted Safety Awareness Understands Safety Issues Comments Pt appears highly anxious and guarded with all movement. Gross Range of Motion Lower Extremity ROM Assessment Bilaterally Impaired Impairments Left ankle AROM limited due to weakness. Strength Lower Extremity Strength Assessment Bilaterally Impaired Hip R 3-/5; L 2+/5 Ankle R 4/5; L 4-/5 Coordination Assessment Assessment Coordination Comments Unable to assess due to pain presentation Sensation Assessment Comments Sensation Comments Unable to assess due to pain presentation Muscle Tone Muscle Tone WNL Yes M6 PT-IP Treatment Start: 07/08/20 08:36 Freq: NEEDED Status: Active Protocol: Document 07/10/20 13:52 HH (Rec: 07/10/20 14:09 [id number]) Physical Therapy Treatment Exercises Exercises Ankle Pumps,Gluteal Sets,Quad Sets Education Education Provided Precautions,Weight Bearing Status,Post-Op Packet,Safety M7 PT-IP Assessment and Plan Start: 07/08/20 08:36 Freq: NEEDED Status: Active Protocol: Document 07/10/20 13:52 (Rec: 07/10/20 14:09 [id number]) PT Summary Assessment and Plan Potential Rehabilitation Potential Fair Status of Condition at Evaluation Evolving Summary Impairments Pain,ROM,Strength,Balance, Sensation Progress Towards Goals Slow Progress due to Pain,Slow Progress due to Medical Issues,Slow Progress due to Activity Tolerance,Slow Progress - Other Assessment Summary Saul was able to transfer back to bed from low chair this time with max A x 2. He was fatigue after 2sessions today and this PT cont rec skilled rehab d/t his poor pain control and far from his baseline mobility. Educated pt at the end of session with bed exercises to facilitate recovery. Goals Bed Mobility Goal Minimal Assistance Transfer Goal Minimal Assistance,Front Wheeled Walker,Four Wheeled Walker Gait Goal Minimal Assistance,Front Wheel Walker,Four Wheel Walker Gait Distance 200 Other Goals - up/down 13 steps with left rail ascending and SPC in opposite hand Days to Meet Goals 10 Frequency of Treatment Frequency Of Treatment Twice a Day Treatment Plan Physical Therapy Treatment Plan Bed Mobility Training,Transfer Training,Gait Training, Therapeutic Exercise,Balance Retraining,Post Op Education, Discharge Planning,Hot or Cold Pack,Neuromuscular Re-ed, Coordination Retraining,Manual Therapy Other Recommendations and Next Treatment bed mobility, standing, Focus transfer as tolerated Recommendations To Nursing Amount of Assist Needed 2 Person Assist Discharge Recommendations PT Discharge Recommendations Home with 24/7 Assist,Home Health,SNF Rehab Other Discharge Recommendations 24/7 assist with all mobility and subacute rehab Equipment Needed for Home Before BSC, raised toilet seat, Discharge shower chair, FWW if unstable with 4WW Transportation Needs at Discharge Stretcher/Ambulance
--- NOTE | 2020-07-10 14:44 | PC.NURSE ---
Patient medicated with 2 vicodin for complaints of discomfort to his back. He is lying on his back supine and napping. Gabapentin and robaxin also given to patient. He also received 8u of regular insulin. is napping on couch and is supportive of patients care.
[2020-07-10] MEDS: DEXTROSE 50 % IN WATER 25 GM/50 ML SYRINGE IV (16:55)
--- NOTE | 2020-07-10 17:00 | PC.NURSE ---
patient is A&O x4, lying in bed. CB. Patient reports no sxs of hypoglycemia. [place] juice with 3 packets of sugar given. Patient was rechecked and only improved by one point (48). MAR was checked and no dextrose was ordered, despite the diabetic protocol. Call placed to in house pharm. to get dextrose 50% added. Patient was give 1/2 ampule per orders and protocol. Awaiting until 1714 to re-check. Patient remains asymptomatic at this time.
[2020-07-10] MEDS: ATORVASTATIN 20 MG TABLET 40 MG PO (17:22)
[2020-07-10] MEDS: SENNOSIDES 8.6 MG TABLET 17.2 MG PO (20:40)
[2020-07-10] MEDS: HYDROMORPHONE 0.5 MG INJ IV (23:38)
[2020-07-11 04:10] VITALS: BP 154/82; PULSE 82; RESP 16; TEMP 36.8; O2SAT 96
[2020-07-11 07:00] VITALS: BP 156/87; PULSE 85; RESP 16; TEMP 36.8; O2SAT 97
[2020-07-11] MEDS: diazePAM 5 MG TABLET PO ×2 (08:04→14:22)
[2020-07-11] MEDS: GABAPENTIN 100 MG CAPSULE PO ×3 (08:04→20:09)
[2020-07-11] MEDS: DOCUSATE 100 MG CAPSULE PO ×2 (08:04→20:09)
[2020-07-11] MEDS: CELECOXIB 200 MG CAPSULE PO ×2 (08:04→20:08)
[2020-07-11] MEDS: HYDROCODONE/ACET 5/325 TABLET 2 TAB PO (08:05)
[2020-07-11] MEDS: methocarbamoL 500 MG TABLET PO ×3 (08:05→20:08)
[2020-07-11 09:05] VITALS: PULSE 85; RESP 16; O2SAT 97
--- NOTE | 2020-07-11 09:49 | PM.PNPO.1 ---
Subjective Subjective Date Patient Seen: 07/11/20 Time Patient Seen: 09:49 Interval history: He is doing well. His pain had gotten up to 8/10 yesterday but is back under good control.. Legs feel great. Exam Vital Signs (past 8 hours): - 07/11/20 04:10 07/11/20 07:00 07/11/20 09:05 Temperature 98.3 F 98.3 F Pulse Rate 82 85 85 Respiratory Rate 16 16 16 Blood Pressure 154/82 H 156/87 H Pulse Oximetry 96 97 97 Oxygen Delivery Method Room Air Oxygen Flow Rate 0 Const Orientation: alert and oriented x3 Back/Spine/Pelvis Other: Mild drainage. 5/5 motor both lower extremities Objective Labs Result Diagrams: 07/10/20 04:31 Assessment & Plan Post-op Postoperative Procedures: Procedures Operation Date: 07/07/20 11:15 Actual Procedures Side Surgeon p T89 anterior transpleural (through chest cavity) discectomy & anterior/ posterior instrumentated fusion w/ bone graft. L1-2, L3-4 laminectomies Teodoro Webb MD He is doing well. Celine discharge him home this morning.
--- NOTE | 2020-07-11 09:51 | PM.PNPO.1 ---
Subjective Subjective Date Patient Seen: 07/11/20 Time Patient Seen: 09:51 Interval history: Still having significant issues with pain control but was able to get up out of bed to a chair yesterday. Pain is about 8/10 but now better with IV supplementation. His glucose levels bottomed out overnight in the 40s but are back to normal. Exam Vital Signs (past 8 hours): - 07/11/20 04:10 07/11/20 07:00 07/11/20 09:05 Temperature 98.3 F 98.3 F Pulse Rate 82 85 85 Respiratory Rate 16 16 16 Blood Pressure 154/82 H 156/87 H Pulse Oximetry 96 97 97 Oxygen Delivery Method Room Air Oxygen Flow Rate 0 Const Orientation: alert and oriented x3 Back/Spine/Pelvis Other: Mild drainage. 5/5 motor both lower extremities except for unchanged 4/5 bilateral hip flexor and left quad. Objective Labs Result Diagrams: 07/10/20 04:31 Assessment & Plan Post-op Postoperative Procedures: Procedures Operation Date: 07/07/20 11:15 Actual Procedures Side Surgeon p T89 anterior transpleural (through chest cavity) discectomy & anterior/ posterior instrumentated fusion w/ bone graft. L1-2, L3-4 laminectomies Teodoro Webb MD I am going to switch him over to some OxyContin for longer baseline medication. Continue to mobilize. Cut back on some of his insulin.
--- NOTE | 2020-07-11 10:37 | PT.IPTN ---
Current Diagnoses Spinal stenosis, lumbar region with neurogenic claudication (07/07/20) Other intervertebral disc displacement, thoracic region (07/07/20) Surgery Performed Operation Date: 07/07/20 11:15 Actual Procedures p T89 anterior transpleural (through chest cavity) discectomy & anterior/ posterior instrumentated fusion w/ bone graft. L1-2, L3-4 laminectomies - Teodoro Webb MD Physical Therapy Treatment Note M2 PT-IP Current Condition Start: 07/08/20 08:36 Freq: NEEDED Status: Active Protocol: Document 07/09/20 11:52 AW (Rec: 07/09/20 13:32 AW [id number]) Physical Therapy Current Condition Current Condition Evaluation Date 07/09/20 Treatment Diagnosis T8-9 transpleural ant discectomy, L1-2 L3-4 lami; difficulty in walking Onset Date 07/07/20 Precautions Lumbar Precautions Log Roll,No Twisting,Limit Bending,Lifting Restriction of 10 lbs,Gait Belt above Incisional Area M3 PT-IP Subjective Start: 07/08/20 08:36 Freq: NEEDED Status: Active Protocol: Document 07/11/20 10:37 AB (Rec: 07/11/20 11:26 AB [email or web address]) Subjective Physical Therapy Visit Type Type Treatment Note Visit Start Time 10:37 Visit Stop Time 11:03 Total Visit Minutes 26 Number of SUPERVISING LIBRARIAN Visits 0 Physical Therapy Visit Comments Patient Comments pt is agreeable to do PT Therapy Pain Assessment Pain When Pain Assessed At Rest Pain Present Pain Present Pain Reported Location Lower Back Intensity 7 Scale Used Numeric (0 - 10) Pain Management Techniques Distraction,Modification of Treatment,Re-positioning, Timing of Activity with Medications M4 PT-IP Mobility and Gait Start: 07/08/20 08:36 Freq: NEEDED Status: Active Protocol: Document 07/11/20 10:37 AB (Rec: 07/11/20 11:26 AB [email or web address]) PT-Bed Mobility Assessment Rolling Type of Rolling Log Rolling Level of Assist Maximal Assistance,2 Person Assistance Supine to Sit Supine to Sit Maximum Assistance,2 Person Assistance,Bedrails Scooting Scooting to Edge of Bed Maximum Assistance PT-Transfer Assessment Sit to and From Stand Sit to and from Stand Maximum Assistance,2 Person Assistance,Use of Upper Extremities Equipment Transfer Assistive Device Gait Belt,Front Wheeled Walker Orthotic/Prosthetic Devices or Brace: No Transfers Transfer Destination Chair Transfer Technique Stand Step Pivot Transfer Ability Level of Assist Maximum Assistance,2 Person Assistance,Use of Upper Extremities Comments Mobility Comments reviewed back precautions with pt and requires cues to recall. completed supine to sit log roll max A x 2 and max cues. pt was able to sit on EOB max A and cues. completed sit to stand max A x 2 and max cues and tolerated ~ 1 min of standing. c/o weakness. (+) L knee slight buckling needed support . pt sat back to rest. unable to reach back to bed for stand to sit and required max Ax 2 for controlled descent. completed sit to stand again max A x 2 and max cues and completed step transfer to chair using FWW max A x 2 and max cues. pt agreed to do ambulation and completed sit to stand from chair max A x 2 and ambulated ~ 8 ft max A x 2 and max cues and with chair follow. requires assist to stabilize LLE. positioned pt on chair. call light and table placed within reach. Left pt with spouse in room. Gait Assessment Gait Gait Assistance Required: Maximum Assistance,2 Person Assist Distance (Feet) 8 Able to Maintain Weight Bearing Status Yes During Gait Assistive Devices Assistive Device Gait Belt,Front Wheeled Walker Orthotic/Prosthetic Devices or Brace: No Gait Deviations General Gait Pattern Decreased Stride Length, Decreased Feet Clearance, Narrow Based Gait,Step-to Gait Factors Limiting Gait Function Factors Limiting Gait Function Decreased Activity Tolerance, Decreased Strength,Difficulty Following Directions,Limited Range of Motion,Pain,Poor Balance,Poor Safety Awareness, Respiratory Distress M5 PT-IP Objective Assessments Start: 07/08/20 08:36 Freq: NEEDED Status: Active Protocol: Document 07/09/20 11:52 AW (Rec: 07/09/20 14:05 AW [id number]) Orientation Orientation/Cognition Level of Alertness Alert Orientation Name,Day of Week,Place, Situation Language Function Ability No Deficits Noted Safety Awareness Understands Safety Issues Comments Pt appears highly anxious and guarded with all movement. Gross Range of Motion Lower Extremity ROM Assessment Bilaterally Impaired Impairments Left ankle AROM limited due to weakness. Strength Lower Extremity Strength Assessment Bilaterally Impaired Hip R 3-/5; L 2+/5 Ankle R 4/5; L 4-/5 Coordination Assessment Assessment Coordination Comments Unable to assess due to pain presentation Sensation Assessment Comments Sensation Comments Unable to assess due to pain presentation Muscle Tone Muscle Tone WNL Yes M6 PT-IP Treatment Start: 07/08/20 08:36 Freq: NEEDED Status: Active Protocol: Document 07/11/20 10:37 AB (Rec: 07/11/20 11:26 AB [email or web address]) Physical Therapy Treatment Education Education Provided Precautions,Safety M7 PT-IP Assessment and Plan Start: 07/08/20 08:36 Freq: NEEDED Status: Active Protocol: Document 07/11/20 10:37 AB (Rec: 07/11/20 11:26 AB [email or web address]) PT Summary Assessment and Plan Potential Rehabilitation Potential Good Summary Impairments Pain,ROM,Strength,Balance, Coordination,Sensation,Tone, Cognition,Bed Mobility, Transfers,Gait,Activity Tolerance Progress Towards Goals Slow Progress due to Pain,Slow Progress due to Medical Issues,Slow Progress due to Activity Tolerance Assessment Summary pt is progressing slowly but continues to require max A x 2 and max cues and has decrease activity tolerance. pt will require SNF rehab to improve strength and mobility independence. Goals Bed Mobility Goal Minimal Assistance Transfer Goal Minimal Assistance,Front Wheeled Walker,Four Wheeled Walker Gait Goal Minimal Assistance,Front Wheel Walker,Four Wheel Walker Gait Distance 200 Other Goals - up/down 13 steps with left rail ascending and SPC in opposite hand Days to Meet Goals 10 Frequency of Treatment Frequency Of Treatment Twice a Day Recommendations To Nursing Amount of Assist Needed 2 Person Assist Discharge Recommendations PT Discharge Recommendations SNF Rehab Transportation Needs at Discharge Wheelchair/Cabulance
[2020-07-11] MEDS: ENOXAPARIN 40 MG/0.4 ML SYRINGE SUBCUT (10:44)
[2020-07-11] MEDS: hydrOXYzine pamoate 25 MG CAPSULE PO ×2 (10:45→15:29)
[2020-07-11] MEDS: OXYCODONE IR 5 MG TABLET PO (10:45)
[2020-07-11] MEDS: OXYCODONE ER 10 MG TAB PO ×2 (10:45→20:08)
[2020-07-11] MEDS: INSULIN NPH 100 UNIT/ML VIAL 18 UNIT SUBCUT (10:45)
--- NOTE | 2020-07-11 11:04 | OT.IP.TRT ---
Current Diagnoses Spinal stenosis, lumbar region with neurogenic claudication (07/07/20) Other intervertebral disc displacement, thoracic region (07/07/20) Surgery Performed Operation Date: 07/07/20 11:15 Actual Procedures p T89 anterior transpleural (through chest cavity) discectomy & anterior/ posterior instrumentated fusion w/ bone graft. L1-2, L3-4 laminectomies - Teodoro Webb MD Occupational Therapy Treatment Note M2 OT-IP Current Condition Start: 07/09/20 14:18 Freq: Status: Active Protocol: Document 07/09/20 10:05 [facility] (Rec: 07/09/20 14:29 [facility] [id number]) Occupational Therapy Current Condition Current Condition Evaluation Date 07/09/20 Treatment Diagnosis S/p T8-9- ant. transpleural discectomy and ant/post instrumental fusion L1- Diagnosis Onset Date 07/07/20 Post Operative Precautions Lumbar Precautions Log Roll,No Twisting,Limit Bending,Lifting Restriction of 10 lbs,Gait Belt above Incisional Area M3 OT- IP Subjective and Pain Start: 07/09/20 14:18 Freq: Status: Active Protocol: Document 07/11/20 12:32 CGR (Rec: 07/11/20 12:37 CGR [email or web address]) OT- Subjective Occupational Therapy Visit Type Type Progress Note Visit Start Time 10:37 Visit Stop Time 11:04 Total Visit Minutes 27 Notes Co-treat with P.T. OT Pain Assessment Pain When Pain Assessed At Rest Pain Present Pain Present Pain Reported Location Lower Back Intensity 7 Scale Used Numeric (0 - 10) Management Techniques Distraction,Modification of Treatment,Re-positioning M4 OT- IP ADL's Start: 07/09/20 14:18 Freq: Status: Active Protocol: Document 07/11/20 12:32 CGR (Rec: 07/11/20 12:37 CGR [email or web address]) OT [id number] Comments OT Self-Feeding Comments Not meal time OT ADL-Grooming Comments OT Grooming Comments Pt declined, fatigued after mobility. OT ADL-Oral Care Comments Oral Care Comments Pt declined, fatigued after mobility. OT ADL-Dressing Comments OT Dressing Comments Pt declined, fatigued after mobility. OT ADL-Toileting Comments OT Toileting Comments Pt declined, fatigued after mobility. OT ADL-Bathing Comments OT Bathing Comments Not performed M5 OT- IP IADL's Start: 07/09/20 14:18 Freq: Status: Active Protocol: Document 07/09/20 10:05 [facility] (Rec: 07/09/20 14:29 [facility] [id number]) OT-Instrumental Activities of Daily Living Home Safety Awareness Awareness of Need for Assistance at Home Good Awareness Home Safety Comments Pt's having to assist mnore for all needs due to his back pain. Meal Preparation Meal Preparation Caregiver Provides Assist [employer] Caregiver Provides Assist M6 OT- IP Functional Cognition Start: 07/09/20 14:18 Freq: Status: Active Protocol: Document 07/09/20 10:05 [facility] (Rec: 07/09/20 14:29 [facility] [id number]) Cognitive Factors Limiting Selfcare Function Cognitive Ability Level of Alertness Alert Patient Orientation Name,Place,Situation Attention Span Ability Capable of Focused Attention, Capable of Sustained Attention Ability to Follow Commands Able to Follow One Step Commands Cognitive Comments Cognitive Assessment Comments Pt able to follow one step commands for mobility needs. At times having trouble to focus due to having lots of pain. OT- Vision and Hearing OT- Hearing Assessment OT- Hearing Assessment WFL M7 OT- IP Mobility and Balance Start: 07/09/20 14:18 Freq: Status: Active Protocol: Document 07/11/20 12:32 CGR (Rec: 07/11/20 12:37 CGR [email or web address]) OT- Bed Mobility Assessment Rolling Type of Rolling Log Rolling,Roll to Right Level of Assistance Maximum Assistance,1 Person Assistance,2 Person Assistance ,Bedrails Supine to Sit Supine to Sit Assist Maximum Assistance,1 Person Assistance,2 Person Assistance Scooting Scooting to Edge of Bed Minimal Assistance OT-Transfer Assessment Sit to and From Stand Sit to and from Stand Maximum Assistance,2 Person Assistance Transfers Transfer Ability Maximum Assistance,2 Person Assistance Technique Transfer Destination Bed,Chair Transfer Technique Stand Step Pivot Devices Transfer Assistive Devices Gait Belt,Front Wheeled Walker Comments Mobility Comments Pt stood x2 from the bed and performed stand pivot to the chair. OT- Gait Assessment Gait Gait Assistance Required: Maximum Assistance,2 Person Assist Assistive Devices Assistive Device Gait Belt,Front Wheeled Walker Comments Gait Ability Comments Pt ambulated ~8 feet with 2 person assist for safety and chair follow with third person . OT- Balance Assessment Sitting Balance and Reactions Static Sitting Balance Ability Poor Dynamic Sitting Balance Ability Poor M9 OT- IP Assessment and Plan Start: 07/09/20 14:18 Freq: Status: Active Protocol: Document 07/11/20 12:32 CGR (Rec: 07/11/20 12:37 CGR [email or web address]) OT Summary Assessment and Plan Potential Rehabilitation Potential Good Analytic Complexity at Evaluation Moderate Summary OT Impairments Pain,Balance,Functional Mobility,Grooming,Dressing, Toileting,Bathing,Toilet Transfers,Shower Transfers, Activity Tolerance Progress Towards Goals Slow Progress due to Pain,Slow Progress due to Medical Issues,Slow Progress due to Activity Tolerance Assessment Summary Pt perform mobility with increased ease today and reported lower pain. Pt still needed max x 2 for most mobility but was able to ambulate ~8 steps. Pt states a decrease in pain since mobility at end of session from an 8 to a 7/10. Pt will continue to benefit from OT services. Goals Grooming Goal Independent Dressing Goal Minimal Assistance Toileting Goal Minimal Assistance Bathing Goal Moderate Assistance Toilet Transfer Goal Minimal Assistance Shower Transfer Goal Minimal Assistance Patient/Caregiver Education Goal Demonstrate Post-Op Precautions,Caregiver Independent Assisting Patient Days to Meet Goals 20 Frequency of Treatment Frequency Of Treatment Once a Day Treatment Plan OT Treatment Plan ADL Training,Functional Cognition Training,Functional Mobility,Patient/Family Education,Discharge Planning Other Treatment Recommendations and Next Transfer with FWW to [facility] Treatment Focus MAX AX 2. Discharge Recommendations OT Discharge Recommendations SNF Rehab Other Discharge Recommendations Per CM, pt is self pay and unlikley to be able to go to SNF. Home Equipment Needs BSC, FWW, shower chair with back Transportation Needs at Discharge Wheelchair/Cabulance,Stretcher /Ambulance
[2020-07-11] MEDS: MAGNESIUM HYDROXIDE 30 ML UDC PO (11:27)
[2020-07-11] MEDS: HYDROMORPHONE 0.5 MG INJ IV ×2 (11:33→16:40)
[2020-07-11 11:34] VITALS: BP 147/81; PULSE 88; RESP 15; TEMP 36.6
[2020-07-11] MEDS: OXYCODONE IR 10 MG TABLET PO ×3 (12:40→20:08)
[2020-07-11] MEDS: INSULIN ASPART 100 UNIT/ML INSULN PEN SUBCUT (12:40)
--- NOTE | 2020-07-11 13:11 | PT.IPTN ---
Current Diagnoses Spinal stenosis, lumbar region with neurogenic claudication (07/07/20) Other intervertebral disc displacement, thoracic region (07/07/20) Surgery Performed Operation Date: 07/07/20 11:15 Actual Procedures p T89 anterior transpleural (through chest cavity) discectomy & anterior/ posterior instrumentated fusion w/ bone graft. L1-2, L3-4 laminectomies - Teodoro Webb MD Physical Therapy Treatment Note M2 PT-IP Current Condition Start: 07/08/20 08:36 Freq: NEEDED Status: Active Protocol: Document 07/09/20 11:52 AW (Rec: 07/09/20 13:32 AW [id number]) Physical Therapy Current Condition Current Condition Evaluation Date 07/09/20 Treatment Diagnosis T8-9 transpleural ant discectomy, L1-2 L3-4 lami; difficulty in walking Onset Date 07/07/20 Precautions Lumbar Precautions Log Roll,No Twisting,Limit Bending,Lifting Restriction of 10 lbs,Gait Belt above Incisional Area M3 PT-IP Subjective Start: 07/08/20 08:36 Freq: NEEDED Status: Active Protocol: Document 07/11/20 13:11 AB (Rec: 07/11/20 13:41 AB [email or web address]) Subjective Physical Therapy Visit Type Type Treatment Note Visit Start Time 13:11 Visit Stop Time 13:31 Total Visit Minutes 20 Number of TURN MACHINE OPERATOR Visits 0 Physical Therapy Visit Comments Patient Comments pt is agreeble to do PT Therapy Pain Assessment Pain When Pain Assessed At Rest Location Lower Back Scale Used scale not stated but stated better that what it was Pain Management Techniques Distraction,Re-positioning, Timing of Activity with Medications M4 PT-IP Mobility and Gait Start: 07/08/20 08:36 Freq: NEEDED Status: Active Protocol: Document 07/11/20 13:11 AB (Rec: 07/11/20 13:41 AB [email or web address]) PT-Bed Mobility Assessment Rolling Type of Rolling Log Rolling Level of Assist Maximal Assistance,2 Person Assistance Sit to Supine Sit to Supine Maximum Assistance,1 Person Assistance,2 Person Assistance ,Bedrails PT-Transfer Assessment Sit to and From Stand Sit to and from Stand Maximum Assistance,2 Person Assistance,Use of Upper Extremities Equipment Transfer Assistive Device Gait Belt,Front Wheeled Walker Orthotic/Prosthetic Devices or Brace: No Transfers Transfer Destination Bed Transfer Technique Stand Step Pivot Transfer Ability Level of Assist Maximum Assistance,1 Person Assistance,2 Person Assistance ,Use of Upper Extremities Comments Mobility Comments completed sit to stand from chair max A x 2 and max cues. ambulated using FWW ~ 11 ft max A x 1-2 and max cues and with chair follow. required assist to stabilize L knee and cues for quads activation. pt sat on chair to rest requiring max A x 2 for controlled descent to chair. completed sit to stand again from chair max A x 2 and max cues and completed step transfer to bed using FWW max A x 1-2 and max cues. completed sit to supine max A x 1-2 and max cues for log roll bed mobility. required max A x 2 for positioning in bed. educated on LE exercises and instructed on quads sets and ankle pumps. call light and table placed within reach. informed pt and spouse regarding d/c recommendation to SNF and understood. Left pt with spouse in room. Gait Assessment Gait Gait Assistance Required: Maximum Assistance,2 Person Assist Distance (Feet) 11 Able to Maintain Weight Bearing Status Yes During Gait Assistive Devices Assistive Device Gait Belt,Front Wheeled Walker Orthotic/Prosthetic Devices or Brace: No Gait Deviations General Gait Pattern Antalgic,Decreased Stride Length,Decreased Feet Clearance,Step-to Gait Factors Limiting Gait Function Factors Limiting Gait Function Decreased Activity Tolerance, Decreased Strength,Difficulty Following Directions,Limited Range of Motion,Pain,Poor Balance,Poor Safety Awareness Comments Gait Comments pls refer to mobility section for details M5 PT-IP Objective Assessments Start: 07/08/20 08:36 Freq: NEEDED Status: Active Protocol: Document 07/09/20 11:52 AW (Rec: 07/09/20 14:05 AW [id number]) Orientation Orientation/Cognition Level of Alertness Alert Orientation Name,Day of Week,Place, Situation Language Function Ability No Deficits Noted Safety Awareness Understands Safety Issues Comments Pt appears highly anxious and guarded with all movement. Gross Range of Motion Lower Extremity ROM Assessment Bilaterally Impaired Impairments Left ankle AROM limited due to weakness. Strength Lower Extremity Strength Assessment Bilaterally Impaired Hip R 3-/5; L 2+/5 Ankle R 4/5; L 4-/5 Coordination Assessment Assessment Coordination Comments Unable to assess due to pain presentation Sensation Assessment Comments Sensation Comments Unable to assess due to pain presentation Muscle Tone Muscle Tone WNL Yes M6 PT-IP Treatment Start: 07/08/20 08:36 Freq: NEEDED Status: Active Protocol: Document 07/11/20 13:11 AB (Rec: 07/11/20 13:41 AB [email or web address]) Physical Therapy Treatment Exercises Exercises Ankle Pumps,Quad Sets Education Education Provided Precautions,Safety M7 PT-IP Assessment and Plan Start: 07/08/20 08:36 Freq: NEEDED Status: Active Protocol: Document 07/11/20 13:11 AB (Rec: 07/11/20 13:41 AB [email or web address]) PT Summary Assessment and Plan Potential Rehabilitation Potential Good Summary Impairments Pain,ROM,Strength,Balance, Coordination,Sensation,Tone, Cognition,Bed Mobility, Transfers,Gait,Activity Tolerance Progress Towards Goals Slow Progress due to Pain,Slow Progress due to Medical Issues,Slow Progress due to Activity Tolerance Assessment Summary pt is slowly progress with mobility and able to ambulate ~ 11 ft using FWW with max A x 2 and max cues. continues to require increase assistance of 2 and has decrease activity tolerance. pt will require SNF rehab at this time to improve strength and functional independence. Goals Bed Mobility Goal Minimal Assistance Transfer Goal Minimal Assistance,Front Wheeled Walker,Four Wheeled Walker Gait Goal Minimal Assistance,Front Wheel Walker,Four Wheel Walker Gait Distance 200 Other Goals - up/down 13 steps with left rail ascending and SPC in opposite hand Days to Meet Goals 10 Frequency of Treatment Frequency Of Treatment Twice a Day Treatment Plan Physical Therapy Treatment Plan Bed Mobility Training,Transfer Training,Gait Training, Therapeutic Exercise,Balance Retraining,Post Op Education, Discharge Planning,Hot or Cold Pack,Neuromuscular Re-ed, Coordination Retraining,Manual Therapy Other Recommendations and Next Treatment bed mobility, standing, Focus transfer as tolerated Recommendations To Nursing Amount of Assist Needed 2 Person Assist Discharge Recommendations PT Discharge Recommendations SNF Rehab Transportation Needs at Discharge Wheelchair/Cabulance
--- NOTE | 2020-07-11 14:05 | CM.DPNOTE ---
DCP Cont Had multiple lengthy conversation w/patient and spouse today re: DCP. This morning, patient continued to complain of excruciating pain w/any movement, returned this afternoon to find patient sitting up in chair, states he is feeling better. Patient/spouse want to return home upon DC. According to TONE Rivera; Dr Webb indicated DC goal is Monday- TONE Rivera and this ROCK[employer]ANT PLANT SUPERVISOR relayed this to patient and spouse. Spouse Ina wants to research assembly line supervisor options because she does not feel paying privately for all costs at SNF is feasible. Provided the Senior Resource Guide, highlighted in home help page, and encouraged Ina to have [id number] as a tentative DC date for planning purposes. Both patient and spouse Ina seem overwhelmed today; this ROCK[employer] PLANT SUPERVISOR reflected it would be reasonable to feel overwhelmed given a few unexpected turns during this hospitalization, and patient/spouse agreed. Reiterated that contacting in home cg agencies might be useful today towards planning for patient's DC and spouse Ina agreed to do so and remain in contact w/this ROCK[employer]ANT PLANT SUPERVISOR. Discussed the difference between HH and in home care giving. DCP team will need to follow closely. Will remain available to patient, spouse and staff to assist in the coordination of this DCP. KEVEN Ibarra
[2020-07-11 15:10] VITALS: BP 152/91; PULSE 79; RESP 17; TEMP 36.9; O2SAT 98
[2020-07-11] MEDS: ATORVASTATIN 20 MG TABLET 40 MG PO (20:08)
[2020-07-11] MEDS: SENNOSIDES 8.6 MG TABLET 17.2 MG PO (20:08)
[2020-07-11] MEDS: SODIUM CHLORIDE 0.9% FLUSH 10 ML IV (20:09)
[2020-07-11 20:16] VITALS: BP 138/81; PULSE 79; RESP 18; TEMP 37.4; O2SAT 99
[2020-07-12] VITALS (7 sets, daily range): BP systolic 113–144; BP diastolic 72–90; PULSE 65–90; RESP 12–18; TEMP 36.5–37.1; O2SAT 95–96
[2020-07-12] MEDS: diazePAM 5 MG TABLET PO ×4 (00:32→21:44)
--- NOTE | 2020-07-12 07:43 | PM.PNPO.1 ---
Subjective Subjective Date Patient Seen: 07/12/20 Time Patient Seen: 07:43 Interval history: He feels like the pain is gradually getting a little bit better. He he did require some IV hydromorphone in the afternoon but was able to get up with PT and walk around the room. Exam Vital Signs (past 8 hours): - 07/12/20 00:40 07/12/20 02:45 Temperature 98.3 F 97.7 F Pulse Rate 79 82 Respiratory Rate 12 13 Blood Pressure 143/83 H 141/78 H Pulse Oximetry 96 96 Oxygen Delivery Method Room Air Oxygen Flow Rate 0 Const Orientation: alert and oriented x3 Back/Spine/Pelvis Other: Minimal dry drainage. 5/5 motor both lower extremities except for 4/5 left hip flexor and quadriceps Objective Labs Result Diagrams: 07/10/20 04:31 Assessment & Plan Post-op Postoperative Procedures: Procedures Operation Date: 07/07/20 11:15 Actual Procedures Side Surgeon p T89 anterior transpleural (through chest cavity) discectomy & anterior/ posterior instrumentated fusion w/ bone graft. L1-2, L3-4 laminectomies Teodoro Webb MD He is gradually making progress. Continue to mobilize with physical therapy. I have stopped his IV pain medication as we try to focus on oral pain control. He came into surgery very debilitated and high amounts of pain. This certainly contributes to his extended recovery time in the hospital. He does seem like he is finally turning a corner. I am hoping to get him home in the next 1-2 days.
--- NOTE | 2020-07-12 07:46 | PM.DS.1 ---
History of Present Illness History of Present Illness Date Patient Seen: 07/13/20 Time Patient Seen: 07:21 Chief complaint: IP Narrative: 64-year-old male with severe pain in the back with radiation around to the abdomen as well as pain weakness going down the legs. This been going on for several months insidiously. He has had difficulty just getting up to stand and walk. He had no relief with an epidural injection. He has been taking Vicodin for pain relief. Discharge Providers Provider Date of admission: 07/07/20 08:57 Discharge Date: 07/13/20 Consults: 07/03/20 12:28 Consult to Anesthesiology Routine Comment: Consulting Provider: Anesthesiologist Reason for consultation: PAC Courtesy re: Comorbidities Consult to Respiratory Therapy Evaluate & Treat Comment: INPT 07/07-CARLOS, no CPAP Physician Instructions: Evaluate and treat 07/07/20 20:15 Consult to Occupational Therapy Evaluate & Treat Comment: Physician Instructions: Evaluate and treat Consult to Physical Therapy Evaluate & Treat Comment: Physician Instructions: Evaluate and Treat Discharge provider: Teodoro Webb MD Summary Hospital Course Discharge Diagnosis: Thoracic disc herniation with myelopathy Lumbar stenosis with radiculopathy Hospital Course: He was brought to the operating room on 07/07/2020 where he underwent a trans pleural T8-9 anterior diskectomy and fusion with posterior instrumented fusion as well as a L1-2 and L3-4 laminectomy. He was admitted to the ICU. His chest tube was removed the next morning. However there had been some air leakage and he accumulated a pneumothorax on that side. The chest tube was replaced and the pneumothorax resolved and the tube was successfully removed the next day without problem. He did have acute blood loss anemia with surgery and did require 2 unit blood transfusion for this. He had significant issues with pain control and this was gradually brought under better control. He slowly was mobilizing and by date of discharge was able to get up and down and in and out of bed. He was starting to do more walking. His significant preoperative leg weakness improved after surgery with near full strength in the right leg and significant improvements in the left leg as well. Status at Discharge Cognitive/behavioral status at discharge: oriented Functional status at discharge: uses cane/walker Overall status at discharge: patient is progressing back to baseline Exam Vital Signs (past 8 hours): - 07/12/20 00:40 07/12/20 02:45 07/12/20 07:44 Temperature 98.3 F 97.7 F 98.4 F Pulse Rate 79 82 80 Respiratory Rate 12 13 17 Blood Pressure 143/83 H 141/78 H 144/83 H Pulse Oximetry 96 96 95 Oxygen Delivery Method Room Air Oxygen Flow Rate 0 Const Orientation: alert and oriented x3 Back/Spine/Pelvis Other: Minimal dry drainage. 5/5 motor both lower extremities except 4/5 left hip flexor Objective Labs Result Diagrams: 07/10/20 04:31 Discharge Assessment & Plan Assessment and Plan Assessment: Thoracic disc herniation lumbar stenosis now status post laminectomy and fusion. Plan of Treatment: Discharge home with home health. Discharge Plan Discharge Plan Patient Disposition: Home Provider Discharge Comment: Follow-up 1 week Discharge orders & Medications Prescriptions: New diazepam 5 mg Tablet 5 mg PO Q6HR PRN (Reason: Spasms) Qty: 20 RF: 0 docusate sodium [DOK] 100 mg Capsule 100 mg PO BID PRN (Reason: constipation) Qty: 40 RF: 0 oxycodone [OxyContin] 10 mg Tablet,Oral Only,Ext.Rel.12 Hr 10 mg PO BID PRN (Reason: Pain) Qty: 14 RF: 0 oxycodone 5 mg Tablet See Rx Instructions .ROUTE .COMPLEX PRN (Reason: Pain, Moderate (4-6)) Qty: 60 RF: 0 Continued atorvastatin 40 mg Tablet 40 mg PO QPM RF: 0 methocarbamol 500 mg Tablet 500 mg PO TID RF: 0 insulin regular human 100 unit/mL Solution 8 unit SUBCUT TID RF: 0 insulin NPH isoph U-100 human 100 unit/mL Suspension 18 unit SUBCUT BID RF: 0 docusate sodium [Colace] 100 mg Capsule 100 mg PO DAILY RF: 0 gabapentin 100 mg Capsule 100 mg PO TID RF: 0 ibuprofen 600 mg Tablet 600 mg PO Q6H RF: 0 Pradaxa 150 mg Capsule 150 mg PO BID RF: 0
[2020-07-12] MEDS: polyethylene glycoL 3350 17 GM POWD.PACK PO (08:08)
[2020-07-12] MEDS: hydrOXYzine pamoate 25 MG CAPSULE PO ×4 (08:09→23:55)
[2020-07-12] MEDS: DABIGATRAN 75 MG CAPSULE 150 MG PO ×2 (08:09→21:42)
[2020-07-12] MEDS: methocarbamoL 500 MG TABLET PO ×3 (08:09→21:42)
[2020-07-12] MEDS: OXYCODONE ER 10 MG TAB PO ×2 (08:09→21:43)
[2020-07-12] MEDS: OXYCODONE IR 10 MG TABLET PO ×5 (08:10→21:43)
[2020-07-12] MEDS: DOCUSATE 100 MG CAPSULE PO ×2 (08:10→21:41)
[2020-07-12] MEDS: GABAPENTIN 100 MG CAPSULE PO ×3 (08:10→21:42)
[2020-07-12] MEDS: SODIUM CHLORIDE 0.9% FLUSH 10 ML IV ×2 (08:18→21:43)
[2020-07-12] MEDS: INSULIN NPH 100 UNIT/ML VIAL 18 UNIT SUBCUT (08:19)
--- NOTE | 2020-07-12 11:25 | CM.DPC ---
DCP continued: EMR reviewed: CM/RN met with patient at the bedside and discussed HH services for patient at D/C. Patient stated his is doing all the D/C planning. Cm/RN called patients jorge at [phone] with patient permission. Patients agreed that HH pt would be useful and since patient is self pay they can afford that as well. Cm/RN contacted [facility] and faxed F2f and paperwork for there review. patients received info on private pay caregivers for home and stated she is planning on hiring a few to help patient out at home. Patients did ask to speak to dietitian and they have some questions about vegan diet and helping patient get enough protein and put on weight and recover. Cm department will follow up tomorrow with Dietitian since no one is here today for this consult. Teodora Fisher RN
[2020-07-12] MEDS: MAGNESIUM HYDROXIDE 30 ML UDC PO (12:10)
--- NOTE | 2020-07-12 12:15 | PT.IPTN ---
Current Diagnoses Spinal stenosis, lumbar region with neurogenic claudication (07/07/20) Other intervertebral disc displacement, thoracic region (07/07/20) Surgery Performed Operation Date: 07/07/20 11:15 Actual Procedures p T89 anterior transpleural (through chest cavity) discectomy & anterior/ posterior instrumentated fusion w/ bone graft. L1-2, L3-4 laminectomies - Teodoro Webb MD Physical Therapy Treatment Note M2 PT-IP Current Condition Start: 07/08/20 08:36 Freq: NEEDED Status: Active Protocol: Document 07/09/20 11:52 AW (Rec: 07/09/20 13:32 AW [id number]) Physical Therapy Current Condition Current Condition Evaluation Date 07/09/20 Treatment Diagnosis T8-9 transpleural ant discectomy, L1-2 L3-4 lami; difficulty in walking Onset Date 07/07/20 Precautions Lumbar Precautions Log Roll,No Twisting,Limit Bending,Lifting Restriction of 10 lbs,Gait Belt above Incisional Area M3 PT-IP Subjective Start: 07/08/20 08:36 Freq: NEEDED Status: Active Protocol: Document 07/12/20 12:13 AW (Rec: 07/12/20 14:59 AW [id number]) Subjective Physical Therapy Visit Type Type Treatment Note Visit Start Time 11:46 Visit Stop Time 12:13 Total Visit Minutes 27 Notes Attempted to work with pt ~ 1000 but pt requested later start for pain med coordination. Number of DROP FORGE HAND Visits 0 Physical Therapy Visit Comments Patient Comments pt is agreeable to do PT Therapy Pain Assessment Pain When Pain Assessed At Rest Pain Present Pain Present Pain Reported Location Lower Back Intensity 7 Scale Used Numeric (0 - 10) Pain Management Techniques Distraction,Re-positioning, Timing of Activity with Medications M4 PT-IP Mobility and Gait Start: 07/08/20 08:36 Freq: NEEDED Status: Active Protocol: Document 07/12/20 12:13 AW (Rec: 07/12/20 14:59 AW [id number]) PT-Bed Mobility Assessment Rolling Type of Rolling Log Rolling Level of Assist Maximal Assistance,1 Person Assistance Supine to Sit Supine to Sit Maximum Assistance,1 Person Assistance,Bedrails Scooting Scooting to Edge of Bed Moderate Assistance PT-Transfer Assessment Sit to and From Stand Sit to and from Stand Maximum Assistance,1 Person Assistance,Use of Upper Extremities Equipment Transfer Assistive Device Gait Belt,Front Wheeled Walker Orthotic/Prosthetic Devices or Brace: No Transfers Transfer Destination Chair Transfer Technique Stand Step Pivot Transfer Ability Level of Assist Maximum Assistance,1 Person Assistance,Use of Upper Extremities Comments Mobility Comments Pt completed all bed mobility with max 1PA. He was able to sit EOB with UE support and min assist for seated balance. He participated with scooting toward EOB but needed mod assist. Sit to stand with FWW required heavy cueing and max 1PA. In standing, pt was able to extend his knees and hips briefly in response to max cues. With max 1PA, pt took steps and pivoted to transfer to bedside chair, requiring constant stabilization of the walker and cues for sequencing . Pt sat on the chair with poorly controlled descent. He was positioned with call light and all needs in reach. Gait Assessment Comments Gait Comments Pt did not walk at this session. PT-Balance Assessment Sitting Balance and Reactions Static Sitting Balance Ability Fair Dynamic Sitting Balance Ability Poor Standing Balance and Reactions Static Standing Balance Ability Poor Dynamic Standing Balance Ability Poor Device Used FWW M5 PT-IP Objective Assessments Start: 07/08/20 08:36 Freq: NEEDED Status: Active Protocol: Document 07/09/20 11:52 AW (Rec: 07/09/20 14:05 AW [id number]) Orientation Orientation/Cognition Level of Alertness Alert Orientation Name,Day of Week,Place, Situation Language Function Ability No Deficits Noted Safety Awareness Understands Safety Issues Comments Pt appears highly anxious and guarded with all movement. Gross Range of Motion Lower Extremity ROM Assessment Bilaterally Impaired Impairments Left ankle AROM limited due to weakness. Strength Lower Extremity Strength Assessment Bilaterally Impaired Hip R 3-/5; L 2+/5 Ankle R 4/5; L 4-/5 Coordination Assessment Assessment Coordination Comments Unable to assess due to pain presentation Sensation Assessment Comments Sensation Comments Unable to assess due to pain presentation Muscle Tone Muscle Tone WNL Yes M6 PT-IP Treatment Start: 07/08/20 08:36 Freq: NEEDED Status: Active Protocol: Document 07/12/20 12:13 AW (Rec: 07/12/20 14:59 AW [id number]) Physical Therapy Treatment Exercises Exercises Ankle Pumps,Quad Sets Education Education Provided Precautions,Safety M7 PT-IP Assessment and Plan Start: 07/08/20 08:36 Freq: NEEDED Status: Active Protocol: Document 11/22/20 12:13 AW (Rec: 07/12/20 14:59 AW [id number]) PT Summary Assessment and Plan Potential Status of Condition at Evaluation Stable Summary Impairments Pain,ROM,Strength,Balance, Coordination,Sensation,Tone, Cognition,Bed Mobility, Transfers,Gait,Activity Tolerance Progress Towards Goals Slow Progress due to Pain,Slow Progress due to Medical Issues,Slow Progress due to Activity Tolerance Assessment Summary Pt did not take pain medication overnight and is now playing catch up in his own words. His mobility this AM was affected by poor pain control. Will coordinate with RN for timing meds with PM session. Goals Bed Mobility Goal Minimal Assistance Transfer Goal Minimal Assistance,Front Wheeled Walker,Four Wheeled Walker Gait Goal Minimal Assistance,Front Wheel Walker,Four Wheel Walker Gait Distance 200 Other Goals - up/down 13 steps with left rail ascending and SPC in opposite hand Days to Meet Goals 10 Frequency of Treatment Frequency Of Treatment Twice a Day Treatment Plan Physical Therapy Treatment Plan Bed Mobility Training,Transfer Training,Gait Training, Therapeutic Exercise,Balance Retraining,Post Op Education, Discharge Planning,Hot or Cold Pack,Neuromuscular Re-ed, Coordination Retraining,Manual Therapy Recommendations To Nursing Amount of Assist Needed 2 Person Assist Discharge Recommendations PT Discharge Recommendations SNF Rehab Transportation Needs at Discharge Wheelchair/Cabulance
[2020-07-12] MEDS: INSULIN ASPART 100 UNIT/ML INSULN PEN SUBCUT (12:44)
--- NOTE | 2020-07-12 15:45 | PT.IPTN ---
Current Diagnoses Spinal stenosis, lumbar region with neurogenic claudication (07/07/20) Other intervertebral disc displacement, thoracic region (07/07/20) Surgery Performed Operation Date: 07/07/20 11:15 Actual Procedures p T89 anterior transpleural (through chest cavity) discectomy & anterior/ posterior instrumentated fusion w/ bone graft. L1-2, L3-4 laminectomies - Teodoro Webb MD Physical Therapy Treatment Note M2 PT-IP Current Condition Start: 07/08/20 08:36 Freq: NEEDED Status: Active Protocol: Document 07/09/20 11:52 AW (Rec: 07/09/20 13:32 AW [id number]) Physical Therapy Current Condition Current Condition Evaluation Date 07/09/20 Treatment Diagnosis T8-9 transpleural ant discectomy, L1-2 L3-4 lami; difficulty in walking Onset Date 07/07/20 Precautions Lumbar Precautions Log Roll,No Twisting,Limit Bending,Lifting Restriction of 10 lbs,Gait Belt above Incisional Area M3 PT-IP Subjective Start: 07/08/20 08:36 Freq: NEEDED Status: Active Protocol: Document 07/12/20 15:41 AW (Rec: 07/12/20 17:02 AW [id number]) Subjective Physical Therapy Visit Type Type Treatment Note Visit Start Time 15:09 Visit Stop Time 15:41 Total Visit Minutes 32 Notes Pt's was present throughout session. TORPEDO SHOOTER assisted with chair follow. Number of CANDY FEEDER Visits 0 Physical Therapy Visit Comments Patient Comments pt is agreeable to do PT Therapy Pain Assessment Pain When Pain Assessed At Rest Pain Present Pain Present Pain Reported Location Lower Back Intensity 6 Scale Used Numeric (0 - 10) Pain Management Techniques Distraction,Re-positioning, Timing of Activity with Medications M4 PT-IP Mobility and Gait Start: 07/08/20 08:36 Freq: NEEDED Status: Active Protocol: Document 07/12/20 15:41 AW (Rec: 07/12/20 17:02 AW [id number]) PT-Bed Mobility Assessment Rolling Type of Rolling Log Rolling Level of Assist Moderate Assistance,1 Person Assistance Supine to Sit Supine to Sit Moderate Assistance,1 Person Assistance,Bedrails Sit to Supine Sit to Supine Moderate Assistance,1 Person Assistance,Bedrails Scooting Scooting to Edge of Bed Moderate Assistance PT-Transfer Assessment Sit to and From Stand Sit to and from Stand Maximum Assistance,1 Person Assistance,Use of Upper Extremities Equipment Transfer Assistive Device Gait Belt,Front Wheeled Walker Orthotic/Prosthetic Devices or Brace: No Transfers Transfer Destination Bed,Chair Transfer Technique pt ambulated with FWW Transfer Ability Level of Assist Maximum Assistance,1 Person Assistance,Use of Upper Extremities Comments Mobility Comments Pt log rolled to his right side and completed SL to sit mod A x 1. In sitting, he was able to support himself in midline but with excessive thoracic kyphosis. Pt agreed to stand and attempt ambulation with chair follow. With max 1 PA and FWW, pt stood from the bed and was able to extend his knees and hips. Pt required frequent reminders to keep his eyes open as he ambulated 15 feet with FWW and chair follow. He sat on the chair with mod 1PA to control descent. After a short break, pt agreed to stand and ambulate again. He stood max 1PA and FWW and walked back toward the bed a total of 10 feet. He sat EOB and needed mod 1PA to complete sit to supine with reverse log roll. Pt was left in right sidelying, call light in reach. His remained in room. Gait Assessment Gait Gait Assistance Required: Maximum Assistance,2 Person Assist Distance (Feet) 15 Able to Maintain Weight Bearing Status Yes During Gait Assistive Devices Assistive Device Gait Belt,Front Wheeled Walker Orthotic/Prosthetic Devices or Brace: No Gait Deviations General Gait Pattern Antalgic,Decreased Stride Length,Decreased Feet Clearance,Step-to Gait Factors Limiting Gait Function Factors Limiting Gait Function Decreased Activity Tolerance, Decreased Strength,Difficulty Following Directions,Limited Range of Motion,Pain,Poor Balance,Poor Safety Awareness Comments Gait Comments See mobility comments for details. Of note, pt feels the FWW is not stable enough for him and would like to try 4WW as he has at home. In this PT' s assessment, pt is using the walker for heavy weightbearing and 4WW would not be appropriate. Stair Climbing Assessment Comments Stair Climbing Comments Not assessed. Discussed stair navigation with who states she will have several people to help get pt up 2 steps and into the house at discharge. They are planning for pt to stay on data entry manager as long as needed. PT-Balance Assessment Sitting Balance and Reactions Static Sitting Balance Ability Fair Dynamic Sitting Balance Ability Fair Standing Balance and Reactions Static Standing Balance Ability Poor Dynamic Standing Balance Ability Poor Device Used FWW M5 PT-IP Objective Assessments Start: 07/08/20 08:36 Freq: NEEDED Status: Active Protocol: Document 07/09/20 11:52 AW (Rec: 07/09/20 14:05 AW [id number]) Orientation Orientation/Cognition Level of Alertness Alert Orientation Name,Day of Week,Place, Situation Language Function Ability No Deficits Noted Safety Awareness Understands Safety Issues Comments Pt appears highly anxious and guarded with all movement. Gross Range of Motion Lower Extremity ROM Assessment Bilaterally Impaired Impairments Left ankle AROM limited due to weakness. Strength Lower Extremity Strength Assessment Bilaterally Impaired Hip R 3-/5; L 2+/5 Ankle R 4/5; L 4-/5 Coordination Assessment Assessment Coordination Comments Unable to assess due to pain presentation Sensation Assessment Comments Sensation Comments Unable to assess due to pain presentation Muscle Tone Muscle Tone WNL Yes M6 PT-IP Treatment Start: 07/08/20 08:36 Freq: NEEDED Status: Active Protocol: Document 07/12/20 15:41 AW (Rec: 07/12/20 17:02 AW [id number]) Physical Therapy Treatment Education Education Provided Precautions,Safety M7 PT-IP Assessment and Plan Start: 07/08/20 08:36 Freq: NEEDED Status: Active Protocol: Document 07/12/20 15:41 AW (Rec: 07/12/20 17:02 AW [id number]) PT Summary Assessment and Plan Potential Rehabilitation Potential Fair Status of Condition at Evaluation Stable Summary Impairments Pain,ROM,Strength,Balance, Coordination,Sensation,Tone, Cognition,Bed Mobility, Transfers,Gait,Activity Tolerance Progress Towards Goals Slow Progress due to Pain,Slow Progress due to Medical Issues,Slow Progress due to Activity Tolerance Assessment Summary Pt tolerated more activity this PM. PT discussed home equipment at length with pt's , advising of need for FWW , BSC, shower chair, and wheelchair. Pt's states she has been providing heavy assist with mobility for the past two months and feels she will be able to manage with assist from other family members. They are also planning to engage HH PT at discharge. Pt's level of need for assist suggests pt needs SNF rehab but pt and his are refusing due to financial considerations. Goals Bed Mobility Goal Minimal Assistance Transfer Goal Minimal Assistance,Front Wheeled Walker,Four Wheeled Walker Gait Goal Minimal Assistance,Front Wheel Walker,Four Wheel Walker Gait Distance 200 Other Goals - up/down 13 steps with left rail ascending and SPC in opposite hand Days to Meet Goals 10 Frequency of Treatment Frequency Of Treatment Twice a Day Treatment Plan Physical Therapy Treatment Plan Bed Mobility Training,Transfer Training,Gait Training, Therapeutic Exercise,Balance Retraining,Post Op Education, Discharge Planning,Hot or Cold Pack,Neuromuscular Re-ed, Coordination Retraining,Manual Therapy Other Recommendations and Next Treatment bed mobility, transfer, Focus ambulate with FWW as tolerated Recommendations To Nursing Amount of Assist Needed 2 Person Assist Discharge Recommendations PT Discharge Recommendations SNF Rehab Transportation Needs at Discharge Wheelchair/Cabulance
[2020-07-12] MEDS: SENNOSIDES 8.6 MG TABLET 17.2 MG PO (21:41)
[2020-07-12] MEDS: ATORVASTATIN 20 MG TABLET 40 MG PO (21:42)
[2020-07-13 00:15] VITALS: BP 152/76; PULSE 76; RESP 18; TEMP 37.1; O2SAT 98
[2020-07-13] MEDS: OXYCODONE IR 10 MG TABLET PO ×5 (01:03→13:02)
[2020-07-13] MEDS: hydrOXYzine pamoate 25 MG CAPSULE PO ×2 (04:06→10:25)
--- NOTE | 2020-07-13 07:19 | PM.PNPO.1 ---
Subjective Subjective Date Patient Seen: 07/13/20 Time Patient Seen: 07:20 Interval history: Slowly getting a bit better. Still having some difficulty getting out of bed but able to walk once he is up now. He feels like he is almost back to his baseline on strength and pain management from when he came in prior to surgery. Some of the pains are still there but others are better. Exam Vital Signs (past 8 hours): - 07/13/20 00:15 Temperature 98.8 F Pulse Rate 76 Respiratory Rate 18 Blood Pressure 152/76 H Pulse Oximetry 98 Oxygen Delivery Method Room Air Oxygen Flow Rate 0 Const Orientation: alert and oriented x3 Back/Spine/Pelvis Other: Mild drainage. 5/5 motor both lower extremities except for 4/5 left hip flexor Objective Labs Result Diagrams: 07/10/20 04:31 Assessment & Plan Post-op Postoperative Procedures: Procedures Operation Date: 07/07/20 11:15 Actual Procedures Side Surgeon p T89 anterior transpleural (through chest cavity) discectomy & anterior/ posterior instrumentated fusion w/ bone graft. L1-2, L3-4 laminectomies Teodoro Webb MD He is slowly getting better and getting back to his baseline. Hopefully more time will continue to have this improved. At this point, if we can get home health arranged, he could be discharged today.
[2020-07-13 07:35] VITALS: BP 144/88; PULSE 81; RESP 16; TEMP 36.1; O2SAT 98
[2020-07-13] MEDS: polyethylene glycoL 3350 17 GM POWD.PACK PO (08:14)
[2020-07-13] MEDS: methocarbamoL 500 MG TABLET PO (08:15)
[2020-07-13] MEDS: BISACODYL 10 MG SUPP PR (08:15)
[2020-07-13] MEDS: OXYCODONE ER 10 MG TAB PO (08:15)
[2020-07-13] MEDS: GABAPENTIN 100 MG CAPSULE PO (08:15)
[2020-07-13] MEDS: DOCUSATE 100 MG CAPSULE PO (08:15)
[2020-07-13] MEDS: DABIGATRAN 75 MG CAPSULE 150 MG PO (08:15)
[2020-07-13] MEDS: INSULIN NPH 100 UNIT/ML VIAL 18 UNIT SUBCUT (08:16)
[2020-07-13] MEDS: SODIUM CHLORIDE 0.9% FLUSH 10 ML IV (08:17)
--- NOTE | 2020-07-13 11:15 | PT-IP ANOTE ---
Contacted pt twice this AM for morning treatment. He had just used the BSC on first attempt and asked to wait. On second attempt, pt's was in the room. They stated they would like assist with car transfer at discharge this afternoon and preferred to conserve the pt's energy for discharge. Pt's has acquired a transport wheelchair, BSC, offloading cushion for sitting, and grab bar for bathroom. They have arranged for 5 additional people to assist with carrying the pt up the stairs at home where he is expected to stay until able to navigate stairs on his own. HH PT is expected to initiate services tomorrow. Discussed case with WALKING DRAGLINE OPERATOR who will make the family aware of EMS service to assist with stairs if needed.
--- NOTE | 2020-07-13 12:33 | PC.NURSE ---
Addendum entered by Ramin Begum R.N. 07/13/20 13:08: Dsgs changed per MD order. Incisions are well approximated with sutures. Stage 2 blister noted to left side of lower back incision. cleansed with SNS, pat dry, applied dsg. Pt tolerated well. PT in to help pt to private vehicle. All belongings sent with /pt. Original Note: Pt to dc home per order at 1300 (after lunch). Provided educational materials and d/c packet. Reviewed rx, med regimen, next dose due. Reviewed new meds, precautions, effects, doses, timing. Both pt and verbalize understanding of teaching. Pt states he has a f/u appt 07/[address] Webb. Rxs given to . Removed PIV with cath tip intact. Will change surgical dsgs per VVO from Dr. Webb this AM.
[2020-07-13] MEDS: diazePAM 5 MG TABLET PO (13:02)
--- NOTE | 2020-07-13 13:48 | CM.DPC ---
DCP/continued: Reviewed chart. Per ortho team patient okay to d/c home today. Per CM notes, patient requesting to have [facility]. CONTENT ENGINEER placed call to [facility] at [facility]. He will check to see if they can accept. Per Lopez, he is unsure if they will/can accept private pay. F2F and d/c summary faxed to [facility]. CONTENT ENGINEER requested that [facility] f/u with patient at home. [facility] agreeable. P: Home today. [facility] requested and they have been notified. KEVEN Atwood
--- NOTE | 2020-07-13 14:27 | PT.IPTN ---
Current Diagnoses Spinal stenosis, lumbar region with neurogenic claudication (07/07/20) Other intervertebral disc displacement, thoracic region (07/07/20) Surgery Performed Operation Date: 07/07/20 11:15 Actual Procedures p T89 anterior transpleural (through chest cavity) discectomy & anterior/ posterior instrumentated fusion w/ bone graft. L1-2, L3-4 laminectomies - Teodoro Webb MD Physical Therapy Treatment Note M2 PT-IP Current Condition Start: 07/08/20 08:36 Freq: NEEDED Status: Discharge Protocol: Document 07/09/20 11:52 AW (Rec: 07/09/20 13:32 AW [id number]) Physical Therapy Current Condition Current Condition Evaluation Date 07/09/20 Treatment Diagnosis T8-9 transpleural ant discectomy, L1-2 L3-4 lami; difficulty in walking Onset Date 07/07/20 Precautions Lumbar Precautions Log Roll,No Twisting,Limit Bending,Lifting Restriction of 10 lbs,Gait Belt above Incisional Area M3 PT-IP Subjective Start: 07/08/20 08:36 Freq: NEEDED Status: Discharge Protocol: Document 07/13/20 13:17 AW (Rec: 07/13/20 14:27 AW [id number]) Subjective Physical Therapy Visit Type Type Treatment Note Visit Start Time 12:49 Visit Stop Time 13:17 Total Visit Minutes 28 Physical Therapy Visit Comments Patient Comments Pt is preparing for discharge. Therapy Pain Assessment Pain When Pain Assessed At Rest Pain Present Pain Present Pain Reported M4 PT-IP Mobility and Gait Start: 07/08/20 08:36 Freq: NEEDED Status: Discharge Protocol: Document 07/13/20 13:17 AW (Rec: 07/13/20 14:27 AW [id number]) PT-Bed Mobility Assessment Rolling Type of Rolling Log Rolling Level of Assist Moderate Assistance,1 Person Assistance Supine to Sit Supine to Sit Moderate Assistance,1 Person Assistance,Bedrails Scooting Scooting to Edge of Bed Minimal Assistance PT-Transfer Assessment Sit to and From Stand Sit to and from Stand Moderate Assistance,Maximum Assistance,1 Person Assistance ,Use of Upper Extremities Equipment Transfer Assistive Device Gait Belt,Front Wheeled Walker Orthotic/Prosthetic Devices or Brace: No Transfers Transfer Destination Wheelchair,Car Transfer Technique Stand Step Pivot Transfer Ability Level of Assist Maximum Assistance,1 Person Assistance,Use of Upper Extremities Comments Mobility Comments Pt log rolled to his right side and completed SL to sit mod A x 1. In sitting, his assisted with LB dressing . Pt stood from the bed ( raised ~2) using FWW and his pulled up his underwear and pants. Pt sat on the bed again with his assisting with UB dressing. Once dressed , pt stood with FWW and completed transfer to the w/c set up 90 degrees to his left max 1PA. Pt was propelled down to the ED entrance where his was waiting with the car. W/c was positioned parallel to the passenger side door. SPT assisted from the drivers side as PT assisted pt to stand and pivot transfer to the vehicle. Pt was safely positioned with cushion under his pelvis and seat belt secured. Pt left with his driving. Stair Climbing Assessment Comments Stair Climbing Comments Not assessed. PT-Balance Assessment Sitting Balance and Reactions Static Sitting Balance Ability Fair Dynamic Sitting Balance Ability Fair Standing Balance and Reactions Static Standing Balance Ability Poor Dynamic Standing Balance Ability Poor Device Used FWW M5 PT-IP Objective Assessments Start: 07/08/20 08:36 Freq: NEEDED Status: Discharge Protocol: Document 07/09/20 11:52 AW (Rec: 07/09/20 14:05 AW [id number]) Orientation Orientation/Cognition Level of Alertness Alert Orientation Name,Day of Week,Place, Situation Language Function Ability No Deficits Noted Safety Awareness Understands Safety Issues Comments Pt appears highly anxious and guarded with all movement. Gross Range of Motion Lower Extremity ROM Assessment Bilaterally Impaired Impairments Left ankle AROM limited due to weakness. Strength Lower Extremity Strength Assessment Bilaterally Impaired Hip R 3-/5; L 2+/5 Ankle R 4/5; L 4-/5 Coordination Assessment Assessment Coordination Comments Unable to assess due to pain presentation Sensation Assessment Comments Sensation Comments Unable to assess due to pain presentation Muscle Tone Muscle Tone WNL Yes M6 PT-IP Treatment Start: 07/08/20 08:36 Freq: NEEDED Status: Discharge Protocol: Document 07/13/20 13:17 AW (Rec: 07/13/20 14:27 AW [id number]) Physical Therapy Treatment Education Education Provided Precautions,Safety M7 PT-IP Assessment and Plan Start: 07/08/20 08:36 Freq: NEEDED Status: Discharge Protocol: Document 07/13/20 13:17 AW (Rec: 07/13/20 14:27 AW [id number]) PT Summary Assessment and Plan Potential Rehabilitation Potential Fair Status of Condition at Evaluation Stable Summary Impairments Pain,ROM,Strength,Balance, Coordination,Sensation,Tone, Cognition,Bed Mobility, Transfers,Gait,Activity Tolerance Progress Towards Goals Slow Progress due to Pain,Slow Progress due to Medical Issues,Slow Progress due to Activity Tolerance Assessment Summary Pt seen only once today in order to conserve energy for car transfer and home entry. Pt's states she acquired all necessary equipment for home. She notes she has assembled help to carry the pt up the stairs at home where he will stay. PT to begin service tomorrow. Goals Bed Mobility Goal Minimal Assistance Transfer Goal Minimal Assistance,Front Wheeled Walker,Four Wheeled Walker Gait Goal Minimal Assistance,Front Wheel Walker,Four Wheel Walker Gait Distance 200 Other Goals - up/down 13 steps with left rail ascending and SPC in opposite hand Days to Meet Goals 10 Frequency of Treatment Frequency Of Treatment Discharge Treatment Plan Physical Therapy Treatment Plan Bed Mobility Training,Transfer Training,Gait Training, Therapeutic Exercise,Balance Retraining,Post Op Education, Discharge Planning,Hot or Cold Pack,Neuromuscular Re-ed, Coordination Retraining,Manual Therapy Discharge Recommendations PT Discharge Recommendations SNF Rehab Transportation Needs at Discharge Wheelchair/Cabulance
== END 2020-07-13 13:10 | disposition home health service (06) | DRG 454 ==
LOC: AC 12:29 → ICU 07-08 09:07 → AC 07-10 15:52 → ICU 07-10 15:52
PROVIDERS: Anesthesiology; Admitting Provider Orthopaedic Surgery; Referring Provider Orthopaedic Surgery; Visit Provider Orthopaedic Surgery
PROC: 0SG00A0 Fusion of Lumbar Vertebral Joint with Interbody Fusion Device, Anterior Approach, Anterior Column, Open Approach (ICD-10-PCS; CPT 22558; principal; 2020-07-07 11:15)
DX: M51.04 Intervertebral disc disorders with myelopathy, thoracic region (principal); D62 Acute posthemorrhagic anemia; J95.811 Postprocedural pneumothorax; E86.0 Dehydration; E11.9 Type 2 diabetes mellitus without complications; Z79.4 Long term (current) use of insulin; G47.30 Sleep apnea, unspecified; Z85.46 Personal history of malignant neoplasm of prostate; Z85.828 Personal history of other malignant neoplasm of skin; M48.062 Spinal stenosis, lumbar region with neurogenic claudication; I25.10 Atherosclerotic heart disease of native coronary artery without angina pectoris
CPT/HCPCS: 36415; 36430; 36592; 71045; 72070; 76000; 82962; 85014; 85018; 86850; 86900; 86901; 87797; 94762; 97116; 97163; 97166; 97530; C1776; P9016; J0131; J0330; J0595; J0690; J1170; J1650; J2250; J2274; J2405; J2704; J3010; J3410; J7050